=== PATIENT | male | born 1995 | race American Indian/Alaskan Native ===

== ENCOUNTER 2016-12-06 16:46 | Emergency (ER) | payer MEDICAID ==
[2016-12-06 17:52] LABS: Basophils % (Auto) 0.6 % (0.0-1.8); Eosinophils % (Auto) 2.1 % (0.0-4.3); Hematocrit 45.3 % (35.5-45.6); Hemoglobin 14.9 gm/dl (11.8-15.2); Mean Corpuscular HGB Conc 33 % (32-34); Mean Corpuscular Hemoglobin 31 pg (28-32); Mean Corpuscular Volume 95 fl (84-94); Platelet Count 184 K/mm3 (140-440); Red Blood Count 4.78 M/mm3 (3.65-5.03); Red Cell Distribution Width 14.2 % (13.2-15.2)
[2016-12-06 18:11] LABS: Alanine Aminotransferase 11 units/L (7-56); Albumin 4.6 g/dL (3.9-5); Albumin/Globulin Ratio 1.5 %; Alkaline Phosphatase 56 units/L (35-129); Anion Gap 18 mmol/L; BUN/Creatinine Ratio 16.66; Blood Urea Nitrogen 15 mg/dL (9-20); Calcium 9.6 mg/dL (8.4-10.2); Carbon Dioxide 27 mmol/L (22-30); Chloride 102.2 mmol/L (98-107); Glucose 75 mg/dL (75-100); Lipase 14 units/L (13-60); Potassium 4.2 mmol/L (3.6-5.0); Sodium 143 mmol/L (137-145); Total Protein 7.6 g/dL (6.3-8.2)
[2016-12-06 20:55] LABS: Bilirubin,Urine NEG (Negative); Blood,Urine LG (Negative); Ketones,Urine NEG (Negative); Leukocyte Esterase,Urine NEG (Negative); Mucus,Urine 1+ /HPF; Nitrite,Urine NEG (Negative); Protein,Urine <15 mg/dL mg/dL (Negative); Urobilinogen,Urine < 2.0 mg/dL (<2.0)
[2016-12-07] MEDS ORDERED: MORPHINE IV ONE (02:51)
[2016-12-07] MEDS ORDERED: ZOFRAN IV ONE (02:53)
[2016-12-07] MEDS ORDERED: TORADOL IV ONE (02:53)
--- NOTE | 2016-12-07 02:58 | Emergency Department Report ---
HPI - General Chief Complaint: Abdominal Pain Time Seen by Provider: 12/07/16 02:44 - HPI HPI: Room 20 The patient is a 21-year-old male presented with a chief complaint of left flank pain. Patient states his symptoms began last night while walking developed pain in his left flank. Patient states she began to feel weak so he laid down once he got to his destination. That evening after urinating the patient noticed hematuria. Patient states the pain in his flank has been a constant pressure and stabbing pain. This morning the patient had another episode of hematuria and was advised by his mother to come to the emergency department. The patient currently gives his pain a score of 10/10 Location: Left flank Duration: Constant since last night Quality: Sharp, pressure Severity: 10/10 Modifying factors: [see above] Context: [see above] Mode of transportation: [not driving] ED Past Medical Hx - Past Medical History Previous Medical History?: No - Surgical History Past Surgical History?: No - Family History Family history: no significant - Social History Smoking Status: Current Some Day Smoker Substance Use Type: None (denies illicit drug use) - Medications Home Medications: Home Medications Medication Instructions Recorded Confirmed Last Taken Type Ibuprofen [Motrin 800 MG tab] 800 mg PO TID PRN #60 tablet 02/28/13 Unknown Rx Ibuprofen [Motrin] 600 mg PO Q8H PRN #60 tablet 08/16/14 Unknown Rx traMADol [Ultram 50 MG tab] 50 mg PO Q6HR PRN #14 tablet 11/07/14 Unknown Rx Ibuprofen [Motrin 800 MG tab] 800 mg PO Q8HR PRN #20 tablet 12/07/16 Unknown Rx Sulfamethoxazole/Trimethoprim 1 each PO BID #14 tablet 12/07/16 Unknown Rx [Bactrim DS TAB] traMADol [Ultram] 50 mg PO Q6HR PRN #14 tablet 12/07/16 Unknown Rx ED Review of Systems ROS: Stated complaint: LT SIDE PAIN/BLOOD IN URINE/CHEST PAIN Other details as noted in HPI Comment: All other systems reviewed and negative Constitutional: denies: chills, fever Eyes: denies: eye pain, eye discharge, vision change ENT: denies: ear pain, throat pain Respiratory: denies: cough, shortness of breath, wheezing Cardiovascular: denies: chest pain, palpitations Endocrine: no symptoms reported Gastrointestinal: abdominal pain. denies: nausea, vomiting Genitourinary: hematuria Musculoskeletal: back pain. denies: joint swelling, arthralgia Skin: denies: rash, lesions Neurological: denies: headache, weakness, paresthesias Psychiatric: denies: anxiety, depression Hematological/Lymphatic: denies: easy bleeding, easy bruising Physical Exam - Physical Exam Vital Signs: Vital Signs 12/06/16 12/07/16 12/07/16 17:26 00:08 01:22 Temperature 98.3 F Pulse Rate 66 76 77 Respiratory 18 16 16 Rate Blood Pressure 112/84 122/88 Blood Pressure 105/57 [Left] O2 Sat by Pulse 96 100 97 Oximetry Physical Exam: GENERAL: The patient is well-developed well-nourished male lying on stretcher not appearing to be in acute distress. [] HEENT: Normocephalic. Atraumatic. Extraocular motions are intact. Patient has moist mucous membranes. NECK: Supple. Trachea midline CHEST/LUNGS: Clear to auscultation. There is no respiratory distress noted. HEART/CARDIOVASCULAR: Regular. There is no tachycardia. There is no gallop rub or murmur. ABDOMEN: Abdomen is soft, with diffuse discomfort to palpation. There is no rebound or guarding. Patient has normal bowel sounds. There is no abdominal distention. SKIN: There is no rash. There is no edema. There is no diaphoresis. NEURO: The patient is awake, alert, and oriented. The patient is cooperative. The patient has normal speech MUSCULOSKELETAL: There is left CVA tenderness. There is no evidence of acute injury. ED Course Vital Signs 12/06/16 12/07/16 12/07/16 17:26 00:08 01:22 Temperature 98.3 F Pulse Rate 66 76 77 Respiratory 18 16 16 Rate Blood Pressure 112/84 122/88 Blood Pressure 105/57 [Left] O2 Sat by Pulse 96 100 97 Oximetry ED Medical Decision Making - Lab Data Result diagrams: 12/06/16 17:33 12/07/16 01:27 Laboratory Tests 12/06/16 12/06/16 12/06/16 17:33 17:33 20:30 WBC 4.0 L RBC 4.78 Hgb 14.9 Hct 45.3 MCV 95 H MCH 31 MCHC 33 RDW 14.2 Plt Count 184 Lymph % (Auto) 47.6 H [place] % (Auto) 6.7 Eos % (Auto) 2.1 Baso % (Auto) 0.6 Lymph # 1.9 [place] # 0.3 Eos # 0.1 Baso # 0.0 Seg Neutrophils % 43.0 Seg Neutrophils # 1.7 L Sodium 143 Potassium 4.2 Chloride 102.2 Carbon Dioxide 27 Anion Gap 18 BUN 15 Creatinine 0.9 Estimated GFR > 60 BUN/Creatinine Ratio 16.66 Glucose 75 Calcium 9.6 Total Bilirubin 0.60 AST 15 ALT 11 Alkaline Phosphatase 56 Troponin T Total Protein 7.6 Albumin 4.6 Albumin/Globulin Ratio 1.5 Lipase 14 Urine Color Yellow Urine Turbidity Clear Urine pH 6.0 Ur Specific [place] 1.024 Urine Protein <15 mg/dl Urine Glucose (UA) Neg Urine Ketones Neg Urine Blood Lg Urine Nitrite Neg Urine Bilirubin Neg Urine Urobilinogen < 2.0 Ur Leukocyte Esterase Neg Urine WBC (Auto) 2.0 Urine RBC (Auto) 59.0 U Epithel Cells (Auto) 1.0 Urine Mucus 1+ 12/07/16 12/07/16 01:27 04:17 WBC RBC Hgb Hct MCV MCH MCHC RDW Plt Count Lymph % (Auto) [place] % (Auto) Eos % (Auto) Baso % (Auto) Lymph # [place] # Eos # Baso # Seg Neutrophils % Seg Neutrophils # Sodium 140 Potassium 4.4 Chloride 102.6 Carbon Dioxide 23 Anion Gap 19 BUN 14 Creatinine 0.7 L Estimated GFR > 60 BUN/Creatinine Ratio 20.00 Glucose 64 L Calcium 9.2 Total Bilirubin AST ALT Alkaline Phosphatase Troponin T < 0.010 < 0.010 Total Protein Albumin Albumin/Globulin Ratio Lipase Urine Color Urine Turbidity Urine pH Ur Specific [place] Urine Protein Urine Glucose (UA) Urine Ketones Urine Blood Urine Nitrite Urine Bilirubin Urine Urobilinogen Ur Leukocyte Esterase Urine WBC (Auto) Urine RBC (Auto) U Epithel Cells (Auto) Urine Mucus - EKG Data -: EKG Interpreted by [place] EKG shows normal: sinus rhythm Rate: bradycardia (52 bpm) - EKG Data When compared to previous EKG there are: previous EKG unavailable Interpretation: other (no ischemic changes seen) - Radiology Data Radiology results: report reviewed (CT abdomen and pelvis, testicular ultrasound ), image reviewed (CT abdomen and pelvis, testicular ultrasound) CT abdomen and pelvis (read by radiologist)-there is no evidence of intestinal or urinary tract obstruction. No ileus or enteritis. The appendix is normal. Testicular Doppler (read by radiologist)-normal examination - Medical Decision Making Will treat empirically for UTI given no other etiology for hematuria has been discovered. - Differential Diagnosis renal colic, pyelonephritis, renal mass, bladder mass Critical care attestation.: If time is entered above; I have spent that time in minutes in the direct care of this critically ill patient, excluding procedure time. ED Disposition Clinical Impression: Left flank pain, Hematuria Disposition: TO HOME OR SELFCARE Is pt being admited?: No Does the pt Need Aspirin: No Condition: Stable Instructions: Acute Hematuria (ED), Flank Pain (ED) Additional Instructions: Return to the emergency department immediately should you develop worsening symptoms, fever, inability to tolerate food or liquid or any other concerns. Prescriptions: Ibuprofen [Motrin 800 MG tab] 800 mg PO Q8HR PRN #20 tablet PRN Reason: Pain Sulfamethoxazole/Trimethoprim [Bactrim DS TAB] 1 each PO BID #14 tablet traMADol [Ultram] 50 mg PO Q6HR PRN #14 tablet PRN Reason: Pain Referrals: KAYLEN TREJO MD [Staff Physician] - 3-5 Days JASMINE OCHOA MD [Staff Physician] - 3-5 Days (Dr. Ochoa is a urologist. Please follow up with him for further evaluation) Time of Disposition: 05:30
[2016-12-07 03:09] LABS: Anion Gap 19 mmol/L; Blood Urea Nitrogen 14 mg/dL (9-20); Calcium 9.2 mg/dL (8.4-10.2); Carbon Dioxide 23 mmol/L (22-30); Chloride 102.6 mmol/L (98-107); Glucose 64 mg/dL (75-100); Potassium 4.4 mmol/L (3.6-5.0); Sodium 140 mmol/L (137-145)
--- NOTE | 2016-12-07 03:48 | Cat Scan Report ---
FINAL REPORT PROCEDURE: CT ABDOMEN PELVIS WO CON TECHNIQUE: Computerized axial tomography of the abdomen and pelvis was performed without intravenous contrast. This study is performed without intravascular contrast material and its sensitivity for abdominal and pelvic pathology, including neoplasms, inflammation, abscess, free fluid, thrombosis, arterial dissection and infarction, is reduced compared with a contrast enhanced study. HISTORY: left flank pain, hematuria COMPARISON: No prior studies are available for comparison. FINDINGS: Visualized lower thorax: No significant abnormality. Liver: Normal size and attenuation. Spleen: Normal size and attenuation. Gallbladder and biliary system: Normal. Pancreas: Normal. Adrenals: Normal. Kidneys: Normal. GI tract: The stomach is normal. The small bowel has a normal appearance. No obstruction, ileus or enteritis. The colon is normal. The appendix is normal.. Lymph nodes and mesentery: Normal. Vasculature: Normal. Bladder: Normal. Reproductive organs: Normal. Peritoneum: No free fluid. Musculoskeletal structures: No significant abnormality. Other: None. IMPRESSION: There is no evidence of intestinal or urinary tract obstruction. No ileus or enteritis. The appendix is normal..
[2016-12-07 05:10] VITALS: BP 100/63
--- NOTE | 2016-12-07 05:16 | Ultrasound Report ---
FINAL REPORT PROCEDURE: US TESTICULAR DOPPLER COMP TECHNIQUE: Real-time dickinson-scale and color flow Doppler sonography in multiple planes of the scrotum, testicles, and epididymes was performed. Velocity spectral waveform analysis Doppler imaging of the arterial inflow and venous outflow of the testicles was performed with image documentation. CPT 60365 and 03288 HISTORY: left flank pain COMPARISON: No prior studies are available for comparison. FINDINGS: RIGHT TESTICLE: Size: 3.9 x 1.7 x 2.4 cm . Appearance: Normal size and echotexture . Arterial blood flow: Normal spectral waveforms, flow velocities and color flow images.. Venous blood flow: Normal spectral waveforms and color flow images. Right epididymis: Normal size and echotexture . Hydrocele: None . LEFT TESTICLE Size: 3.9 x 1.8 x 2.8 cm . Appearance: Normal size and echotexture . Arterial blood flow: Normal spectral waveforms, flow velocities and color flow images.. Venous blood flow: Normal spectral waveforms and color flow images. Leftepididymis: Normal size and echotexture . Hydrocele: None . IMPRESSION: Normal Examination
--- NOTE | 2016-12-07 09:51 | XRay Report ---
ROUTINE CHEST, TWO VIEWS: HISTORY: chest pain. The trachea, heart, mediastinal contour, lung guerrier and bony thorax are unremarkable. IMPRESSION: Unremarkable chest x-ray. No change since 08/16/14.
== END 2016-12-07 06:07 | disposition home or self-care (01) ==
LOC: ED 16:46
DX: R31.9 Hematuria, unspecified (principal); R10.9 Unspecified abdominal pain; F17.200 Nicotine dependence, unspecified, uncomplicated
CPT/HCPCS: 36415; 71020; 74176; 80048; 80053; 81001; 83690; 84484; 85025; 87086; 93005; 93010; 93975; 96374; 96375; 99285; J1885; J2270; J2405

== ENCOUNTER 2017-10-21 19:06 | Emergency (ER) | payer MEDICAID ==
[2017-10-21] MEDS ORDERED: NACL 0.9% 1000 ML 1,000 ML IV ONE (20:14)
[2017-10-21 21:09] LABS: Basophils # (Auto) 0.1 K/mm3 (0.0-0.1); Basophils % (Auto) 1.1 % (0.0-1.8); Eosinophils # (Auto) 0.2 K/mm3 (0.0-0.4); Eosinophils % (Auto) 3.4 % (0.0-4.3); Hematocrit 43.9 % (35.5-45.6); Hemoglobin 15.3 gm/dl (11.8-15.2); Lymphocytes # (Auto) 2.1 K/mm3 (1.2-5.4); Lymphocytes % (Auto) 40.5 % (13.4-35.0); Mean Corpuscular HGB Conc 35 % (32-34); Mean Corpuscular Hemoglobin 32 pg (28-32); Mean Corpuscular Volume 92 fl (84-94); Monocytes # (Auto) 0.4 K/mm3 (0.0-0.8); Monocytes % (Auto) 7.2 % (0.0-7.3); Platelet Count 274 K/mm3 (140-440); Red Blood Count 4.79 M/mm3 (3.65-5.03); Red Cell Distribution Width 13.8 % (13.2-15.2)
[2017-10-21 21:20] LABS: INR 0.99 (0.87-1.13)
[2017-10-21 21:21] LABS: Partial Thromboplastin Time 31.3 Sec. (24.2-36.6)
[2017-10-21 21:29] LABS: Alanine Aminotransferase 15 units/L (7-56); Albumin 4.3 g/dL (3.9-5); BUN/Creatinine Ratio 13; Blood Urea Nitrogen 12 mg/dL (9-20); Hemolysis Index 15; Lipase 20 units/L (13-60)
[2017-10-21 23:13] LABS: Bilirubin,Urine NEG (Negative); Blood,Urine NEG (Negative); Color,Urine Yellow (Yellow); Mucus,Urine FEW /HPF; Protein,Urine <15 mg/dL mg/dL (Negative); RBC,Urine < 1.0 /HPF (0.0-6.0)
[2017-10-21] MEDS ORDERED: TYLENOL ONE (23:14)
[2017-10-22] MEDS ORDERED: NORCO 5/325 PO ONE ×2 (02:39→06:26)
[2017-10-22] MEDS ORDERED: NACL 0.9% 1000 ML 1,000 ML IV ONE (02:39)
--- NOTE | 2017-10-22 06:50 | XRay Report ---
FINAL REPORT EXAM: XR CHEST 1V AP HISTORY: Coughing up blood. TECHNIQUE: A single frontal portable radiograph of the chest was obtained. No prior studies are available for comparison. FINDINGS: The cardiac silhouette and mediastinum are within normal limits. The lungs are clear bilaterally, without focal infiltrate or effusion. There is no pneumothorax. No significant osseous abnormalities are identified. In this patient with reported hemoptysis, (nonemergent) chest CT should be considered for further evaluation. IMPRESSION: No active disease seen in the chest.
--- NOTE | 2017-10-22 07:00 | Emergency Department Report ---
- General Chief Complaint: GI Bleed Stated Complaint: COUGHING BLOOD/LEFT SIDE PAIN Time Seen by Provider: 10/22/17 06:05 Source: patient Mode of arrival: Ambulatory Limitations: No Limitations - History of Present Illness Initial Comments: Patient is a 22-year-old Male who has past history of smoking presented with 3- 4 days of cough and congestion. Patient states that he is now coughing up small amounts of blood in his sputum. Patient states he's had no nausea vomiting or diarrhea. Patient states he does have some left-sided chest discomfort when he coughs. Patient denies any fever. Severity scale (0 -10): 6 Quality: aching - Related Data Previous Rx's Medication Instructions Recorded Last Taken Type Ibuprofen [Motrin 800 MG tab] 800 mg PO TID PRN #60 tablet 02/28/13 Unknown Rx Ibuprofen [Motrin] 600 mg PO Q8H PRN #60 tablet 08/16/14 Unknown Rx traMADol [Ultram 50 MG tab] 50 mg PO Q6HR PRN #14 tablet 11/07/14 Unknown Rx Ibuprofen [Motrin 800 MG tab] 800 mg PO Q8HR PRN #20 tablet 12/07/16 Unknown Rx Sulfamethoxazole/Trimethoprim 1 each PO BID #14 tablet 12/07/16 Unknown Rx [Bactrim DS TAB] traMADol [Ultram] 50 mg PO Q6HR PRN #14 tablet 12/07/16 Unknown Rx Azithromycin [Zithromax Z-ZOË] 250 mg PO DAILY #6 tablet 10/22/17 Unknown Rx HYDROcodone/APAP 5-325 [[place] 1 each PO Q4HR PRN #12 tablet 10/22/17 Unknown Rx 5/325] predniSONE [Deltasone] 20 mg PO QDAY #5 tab 10/22/17 Unknown Rx Allergies Allergy/AdvReac Type Severity Reaction Status Date / Time No Known Allergies Allergy Verified 12/06/16 17:26 ED Review of Systems ROS: Stated complaint: COUGHING BLOOD/LEFT SIDE PAIN Other details as noted in HPI Comment: All other systems reviewed and negative ED Past Medical Hx - Past Medical History Previous Medical History?: Yes Hx Asthma: Yes - Surgical History Past Surgical History?: No - Social History Smoking Status: Current Every Day Smoker Substance Use Type: None - Medications Home Medications: Home Medications Medication Instructions Recorded Confirmed Last Taken Type Ibuprofen [Motrin 800 MG tab] 800 mg PO TID PRN #60 tablet 02/28/13 Unknown Rx Ibuprofen [Motrin] 600 mg PO Q8H PRN #60 tablet 08/16/14 Unknown Rx traMADol [Ultram 50 MG tab] 50 mg PO Q6HR PRN #14 tablet 11/07/14 Unknown Rx Ibuprofen [Motrin 800 MG tab] 800 mg PO Q8HR PRN #20 tablet 12/07/16 Unknown Rx Sulfamethoxazole/Trimethoprim 1 each PO BID #14 tablet 12/07/16 Unknown Rx [Bactrim DS TAB] traMADol [Ultram] 50 mg PO Q6HR PRN #14 tablet 12/07/16 Unknown Rx Azithromycin [Zithromax Z-ZOË] 250 mg PO DAILY #6 tablet 10/22/17 Unknown Rx HYDROcodone/APAP 5-325 [[place] 1 each PO Q4HR PRN #12 tablet 10/22/17 Unknown Rx 5/325] predniSONE [Deltasone] 20 mg PO QDAY #5 tab 10/22/17 Unknown Rx ED Physical Exam - General Limitations: No Limitations General appearance: alert, in no apparent distress - Head Head exam: Present: atraumatic, normocephalic - Eye Eye exam: Present: normal appearance - ENT ENT exam: Present: mucous membranes moist - Neck Neck exam: Present: normal inspection - Respiratory Respiratory exam: Present: normal lung sounds bilaterally. Absent: respiratory distress, wheezes, rales, rhonchi - Cardiovascular Cardiovascular Exam: Present: regular rate, normal rhythm. Absent: systolic murmur, diastolic murmur, rubs, gallop - GI/Abdominal GI/Abdominal exam: Present: soft, normal bowel sounds. Absent: distended, tenderness, guarding - Rectal Rectal exam: Present: deferred - Extremities Exam Extremities exam: Present: normal inspection - Back Exam Back exam: Present: normal inspection - Neurological Exam Neurological exam: Present: alert, oriented X3 - Psychiatric Psychiatric exam: Present: normal affect, normal mood - Skin Skin exam: Present: warm, dry, intact, normal color. Absent: rash ED Course Vital Signs 10/21/17 10/21/17 10/21/17 19:41 20:10 23:34 Temperature 98.6 F 98.6 F Pulse Rate 83 Respiratory 16 18 Rate Blood Pressure 104/72 104/72 Blood Pressure [Left] O2 Sat by Pulse 96 99 Oximetry 10/21/17 10/22/17 10/22/17 23:44 00:00 01:00 Temperature 97.7 F Pulse Rate 52 L 63 56 L Respiratory 14 18 20 Rate Blood Pressure 116/77 104/73 Blood Pressure 116/77 [Left] O2 Sat by Pulse 99 99 99 Oximetry 10/22/17 10/22/17 10/22/17 02:00 03:00 04:00 Temperature Pulse Rate 61 66 63 Respiratory 17 18 28 H Rate Blood Pressure 97/65 99/57 102/63 Blood Pressure [Left] O2 Sat by Pulse 98 98 98 Oximetry 10/22/17 05:00 Temperature Pulse Rate 59 L Respiratory 19 Rate Blood Pressure 108/59 Blood Pressure [Left] O2 Sat by Pulse 99 Oximetry ED Medical Decision Making - Lab Data Result diagrams: 10/21/17 20:48 10/21/17 20:48 - EKG Data -: EKG Interpreted by Id - EKG Data Interpretation: other (EKG shows sinus bradycardia rate of 51 normal axis normal intervals there's ST elevation diffusely consistent with early repolarization is no ST depressions time of interpretation is ) - Radiology Data Radiology results: report reviewed Chest x-ray is within normal limits. There are no infiltrates present. - Medical Decision Making Patient is a 22-year-old black male who has past medical history smoking is coughing small amounts of blood. As no infiltrate seen on x-ray patient be diagnosed with a smoker's bronchitis and be discharged home. Critical care attestation.: If time is entered above; I have spent that time in minutes in the direct care of this critically ill patient, excluding procedure time. ED Disposition Clinical Impression: Bronchitis Disposition: DC-01 TO HOME OR SELFCARE Is pt being admited?: No Does the pt Need Aspirin: No Condition: Stable Instructions: Acute Bronchitis (ED) Referrals: CHINTAN CACERES MD [Primary Care Provider] - 3-5 Days Forms: Accompanied Note
[2017-10-22 07:40] VITALS: BP 98/61
== END 2017-10-22 07:49 | disposition home or self-care (01) ==
LOC: ED 19:06
DX: J45.909 Unspecified asthma, uncomplicated (principal); F17.200 Nicotine dependence, unspecified, uncomplicated
CPT/HCPCS: 36415; 71045; 80053; 81001; 83690; 85025; 85610; 85730; 86850; 86900; 86901; 93005; 93010; 96360; 96361; 99284; J7030

== ENCOUNTER 2017-10-24 20:53 | Emergency (ER) | payer MEDICAID ==
[2017-10-24 21:46] LABS: Basophils % (Auto) 0.1 % (0.0-1.8); Hematocrit 44.6 % (35.5-45.6); Hemoglobin 14.9 gm/dl (11.8-15.2); Lymphocytes # (Auto) 0.6 K/mm3 (1.2-5.4); Lymphocytes % (Auto) 8.4 % (13.4-35.0); Mean Corpuscular HGB Conc 33 % (32-34); Mean Corpuscular Hemoglobin 31 pg (28-32); Mean Corpuscular Volume 94 fl (84-94); Monocytes # (Auto) 0.1 K/mm3 (0.0-0.8); Monocytes % (Auto) 1.6 % (0.0-7.3); Platelet Count 285 K/mm3 (140-440); Red Blood Count 4.77 M/mm3 (3.65-5.03); Red Cell Distribution Width 14.2 % (13.2-15.2)
--- NOTE | 2017-10-24 22:12 | XRay Report ---
FINAL REPORT PROCEDURE: XR CHEST ROUTINE 2V TECHNIQUE: PA and lateral chest radiographs were obtained. CPT 69835 HISTORY: shortness of breath COMPARISON: 10/22/2017 FINDINGS: Heart: Normal. Mediastinum/Vessels: Normal. Lungs/Pleural space: Normal. Bony thorax: No acute osseous abnormality. Other: IMPRESSION: Normal examination.
[2017-10-24 22:41] LABS: BUN/Creatinine Ratio TNR; Blood Urea Nitrogen TNR mg/dL (9-20)
[2017-10-24 22:42] LABS: Calcium TNR mg/dL (8.4-10.2); Hemolysis Index TNR
[2017-10-24 23:33] LABS: BUN/Creatinine Ratio 19; Blood Urea Nitrogen 15 mg/dL (9-20); Calcium 8.9 mg/dL (8.4-10.2); Hemolysis Index 9
--- NOTE | 2017-10-25 02:15 | Emergency Department Report ---
ED General Adult HPI - General Chief complaint: Upper Respiratory Infection Stated complaint: ELIZA,COUGH Time Seen by Provider: 10/25/17 02:01 Source: patient Mode of arrival: Ambulatory Limitations: No Limitations - History of Present Illness Initial comments: Patient is 22 years old male with no significant past medical history. This is his second visit to the ER for the same complaint. Patient was seen here few days ago diagnoses acute bronchitis. Patient is a heavy smoker. He stated that his symptoms are not improving. Patient denied any fever, nausea or vomiting. No shortness of breath. He stated that he has been coughing greenish sputum also. Severity scale (0 -10): 10 - Related Data Previous Rx's Medication Instructions Recorded Last Taken Type Ibuprofen [Motrin 800 MG tab] 800 mg PO TID PRN #60 tablet 02/28/13 Unknown Rx Ibuprofen [Motrin] 600 mg PO Q8H PRN #60 tablet 08/16/14 Unknown Rx traMADol [Ultram 50 MG tab] 50 mg PO Q6HR PRN #14 tablet 11/07/14 Unknown Rx Ibuprofen [Motrin 800 MG tab] 800 mg PO Q8HR PRN #20 tablet 12/07/16 Unknown Rx Sulfamethoxazole/Trimethoprim 1 each PO BID #14 tablet 12/07/16 Unknown Rx [Bactrim DS TAB] traMADol [Ultram] 50 mg PO Q6HR PRN #14 tablet 12/07/16 Unknown Rx Azithromycin [Zithromax Z-ZOË] 250 mg PO DAILY #6 tablet 10/22/17 Unknown Rx HYDROcodone/APAP 5-325 [[place] 1 each PO Q4HR PRN #12 tablet 10/22/17 Unknown Rx 5/325] predniSONE [Deltasone] 20 mg PO QDAY #5 tab 10/22/17 Unknown Rx Amoxicillin [Amoxicillin TAB] 875 mg PO BID #14 tablet 10/25/17 Unknown Rx Allergies Allergy/AdvReac Type Severity Reaction Status Date / Time No Known Allergies Allergy Verified 12/06/16 17:26 ED Review of Systems ROS: Stated complaint: ELIZA,COUGH Other details as noted in HPI Comment: All other systems reviewed and negative Constitutional: denies: chills, fever Respiratory: cough. denies: orthopnea, shortness of breath, SOB with exertion, SOB at rest, wheezing Gastrointestinal: denies: abdominal pain, nausea, vomiting ED Past Medical Hx - Past Medical History Hx Kidney Stones: Yes Hx Asthma: Yes - Surgical History Past Surgical History?: No - Social History Smoking Status: Heavy Tobacco Smoker - Medications Home Medications: Home Medications Medication Instructions Recorded Confirmed Last Taken Type Ibuprofen [Motrin 800 MG tab] 800 mg PO TID PRN #60 tablet 02/28/13 Unknown Rx Ibuprofen [Motrin] 600 mg PO Q8H PRN #60 tablet 08/16/14 Unknown Rx traMADol [Ultram 50 MG tab] 50 mg PO Q6HR PRN #14 tablet 11/07/14 Unknown Rx Ibuprofen [Motrin 800 MG tab] 800 mg PO Q8HR PRN #20 tablet 12/07/16 Unknown Rx Sulfamethoxazole/Trimethoprim 1 each PO BID #14 tablet 12/07/16 Unknown Rx [Bactrim DS TAB] traMADol [Ultram] 50 mg PO Q6HR PRN #14 tablet 12/07/16 Unknown Rx Azithromycin [Zithromax Z-ZOË] 250 mg PO DAILY #6 tablet 10/22/17 Unknown Rx HYDROcodone/APAP 5-325 [[place] 1 each PO Q4HR PRN #12 tablet 10/22/17 Unknown Rx 5/325] predniSONE [Deltasone] 20 mg PO QDAY #5 tab 10/22/17 Unknown Rx Amoxicillin [Amoxicillin TAB] 875 mg PO BID #14 tablet 10/25/17 Unknown Rx ED Physical Exam - General Limitations: No Limitations General appearance: alert, in no apparent distress - Head Head exam: Present: atraumatic, normocephalic - Eye Eye exam: Present: normal appearance, PERRL - ENT ENT exam: Present: normal exam, normal orophraynx, mucous membranes moist - Neck Neck exam: Present: normal inspection, full ROM. Absent: tenderness, meningismus, lymphadenopathy, thyromegaly - Respiratory Respiratory exam: Present: normal lung sounds bilaterally. Absent: respiratory distress, wheezes, rales, rhonchi, stridor, chest wall tenderness, accessory muscle use, decreased breath sounds, prolonged expiratory - Cardiovascular Cardiovascular Exam: Present: regular rate, normal rhythm, normal heart sounds - GI/Abdominal GI/Abdominal exam: Present: soft, normal bowel sounds. Absent: distended, tenderness, guarding, rebound, rigid, organomegaly, mass, bruit, pulsatile mass , hernia - Extremities Exam Extremities exam: Present: normal inspection, full ROM, normal capillary refill - Back Exam Back exam: Present: normal inspection, full ROM. Absent: tenderness, CVA tenderness (R), CVA tenderness (L), muscle spasm, paraspinal tenderness, vertebral tenderness - Neurological Exam Neurological exam: Present: alert, oriented X3, CN II-XII intact, normal gait - Skin Skin exam: Present: warm, intact, normal color. Absent: cyanosis, diaphoretic, erythema, urticaria ED Course Vital Signs 10/24/17 21:00 Temperature 98.8 F Pulse Rate 58 L Respiratory 20 Rate Blood Pressure 106/63 Blood Pressure 106/63 [Right] O2 Sat by Pulse 95 Oximetry ED Medical Decision Making - Lab Data Result diagrams: 10/24/17 21:20 10/24/17 23:00 - EKG Data -: EKG Interpreted by [place] EKG shows normal: sinus rhythm Rate: bradycardia - EKG Data Interpretation: no acute changes - Radiology Data Radiology results: report reviewed Referring Physician: JAYDA MAHER Patient Name: DANIELLE CORREIA Date of : 1995 Sex: Male Report Date: 2017-10-24 Report Status: Finalized Findings [facility] [address] [place] [address] XRay Report Signed Patient: DANIELLE CORREIA MR#: [id number] : 1995 Acct:[id number] Age/Sex: 22 / M ADM Date: 10/24/17 Loc: ED Attending Dr: Ordering Physician: JAYDA MAHER MD Date of Service: 10/24/17 Procedure(s): XR chest routine 2V Accession Number(s): [id number] cc: ED MD NIKA Fluoro Time In Minutes: FINAL REPORT PROCEDURE: XR CHEST ROUTINE 2V TECHNIQUE: PA and lateral chest radiographs were obtained. CPT 08425 HISTORY: shortness of breath COMPARISON: 10/22/2017 FINDINGS: Heart: Normal. Mediastinum/Vessels: Normal. Lungs/Pleural space: Normal. Bony thorax: No acute osseous abnormality. Other: IMPRESSION: Normal examination. Transcribed By: CO Dictated By: ZIA DANIELS MD Electronically Authenticated By: ZIA DANIELS MD Signed Date/Time: 10/24/172207 DD/ 07 TD/TT: 10/24/172207 Critical care attestation.: If time is entered above; I have spent that time in minutes in the direct care of this critically ill patient, excluding procedure time. ED Disposition Clinical Impression: Acute bronchitis Disposition: - TO HOME OR SELFCARE Is pt being admited?: No Condition: Stable Instructions: Acute Bronchitis (ED) Prescriptions: Amoxicillin [Amoxicillin TAB] 875 mg PO BID #14 tablet Referrals: PRIMARY CARE, [Primary Care Provider] - 3-5 Days
[2017-10-25 02:37] VITALS: BP 113/64
== END 2017-10-25 02:36 | disposition home or self-care (01) ==
LOC: ED 20:53
DX: J20.9 Acute bronchitis, unspecified (principal)
CPT/HCPCS: 36415; 71046; 80048; 85025; 87040; 93005; 93010; 99284

== ENCOUNTER 2018-06-29 21:55 | Emergency (ER) | payer MEDICAID ==
[2018-06-29 22:10] VITALS: BP 102/62
--- NOTE | 2018-06-29 23:18 | Emergency Department Report ---
ED Abdominal Pain HPI - General Chief Complaint: Abdominal Pain Stated Complaint: RT FLANK PAIN Source: patient Mode of arrival: Ambulatory Limitations: No Limitations - History of Present Illness Initial Comments: This is a 23-year-old -[place] male presents with right flank pain for 3-4 days. Patient also complains a few episodes of spitting up blood and shortness of breath. Patient states he is currently taken ibuprofen for ankle pain but has not taken any other medications. He is to use an inhaler 2-3 times per day for cough and shortness of breath. He also admits to frequency and urgency. He denies dysuria, palpitations, wheezing, or chest pain. MD Complaint: abdominal pain Onset/Timin -: days(s) Location: R flank Radiation: none Migration to: no migration Severity: moderate Severity scale (0 -10): 7 Quality: aching Consistency: intermittent Improves With: nothing Worsens With: nothing Associated Symptoms: hematemesis. denies: nausea, vomiting, diarrhea, fever, chills, constipation, dysuria, hematochezia, melena, hematuria, anorexia, syncope - Related Data Previous Rx's Medication Instructions Recorded Last Taken Type Ibuprofen [Motrin 800 MG tab] 800 mg PO TID PRN #60 tablet 02/28/13 Unknown Rx Ibuprofen [Motrin] 600 mg PO Q8H PRN #60 tablet 08/16/14 Unknown Rx traMADol [Ultram 50 MG tab] 50 mg PO Q6HR PRN #14 tablet 11/07/14 Unknown Rx Ibuprofen [Motrin 800 MG tab] 800 mg PO Q8HR PRN #20 tablet 12/07/16 Unknown Rx Sulfamethoxazole/Trimethoprim 1 each PO BID #14 tablet 12/07/16 Unknown Rx [Bactrim DS TAB] traMADol [Ultram] 50 mg PO Q6HR PRN #14 tablet 12/07/16 Unknown Rx Azithromycin [Zithromax Z-ZOË] 250 mg PO DAILY #6 tablet 10/22/17 Unknown Rx HYDROcodone/APAP 5-325 [[place] 1 each PO Q4HR PRN #12 tablet 10/22/17 Unknown Rx 5/325] predniSONE [Deltasone] 20 mg PO QDAY #5 tab 10/22/17 Unknown Rx Amoxicillin [Amoxicillin TAB] 875 mg PO BID #14 tablet 10/25/17 Unknown Rx ALBUTEROL Inhaler(NF) [VENTOLIN 1 puff IH Q4-6H PRN #1 inha 06/30/18 Unknown Rx Inhaler(NF)] Benzonatate [Tessalon Perle] 100 mg PO TID PRN #30 capsule 06/30/18 Unknown Rx Allergies Allergy/AdvReac Type Severity Reaction Status Date / Time No Known Allergies Allergy Verified 12/06/16 17:26 ED Review of Systems ROS: Stated complaint: RT FLANK PAIN Other details as noted in HPI ENT: denies: ear pain, throat pain Respiratory: cough, shortness of breath. denies: wheezing Cardiovascular: denies: chest pain, palpitations Gastrointestinal: denies: abdominal pain, nausea, diarrhea Musculoskeletal: back pain (right flank pain). denies: joint swelling, arthralgia Skin: denies: rash, lesions Neurological: denies: headache, weakness, paresthesias Psychiatric: denies: anxiety, depression ED Past Medical Hx - Past Medical History Hx Kidney Stones: Yes Hx Asthma: Yes - Social History Smoking Status: Current Every Day Smoker - Medications Home Medications: Home Medications Medication Instructions Recorded Confirmed Last Taken Type Ibuprofen [Motrin 800 MG tab] 800 mg PO TID PRN #60 tablet 02/28/13 Unknown Rx Ibuprofen [Motrin] 600 mg PO Q8H PRN #60 tablet 08/16/14 Unknown Rx traMADol [Ultram 50 MG tab] 50 mg PO Q6HR PRN #14 tablet 11/07/14 Unknown Rx Ibuprofen [Motrin 800 MG tab] 800 mg PO Q8HR PRN #20 tablet 12/07/16 Unknown Rx Sulfamethoxazole/Trimethoprim 1 each PO BID #14 tablet 12/07/16 Unknown Rx [Bactrim DS TAB] traMADol [Ultram] 50 mg PO Q6HR PRN #14 tablet 12/07/16 Unknown Rx Azithromycin [Zithromax Z-ZOË] 250 mg PO DAILY #6 tablet 10/22/17 Unknown Rx HYDROcodone/APAP 5-325 [[place] 1 each PO Q4HR PRN #12 tablet 10/22/17 Unknown Rx 5/325] predniSONE [Deltasone] 20 mg PO QDAY #5 tab 10/22/17 Unknown Rx Amoxicillin [Amoxicillin TAB] 875 mg PO BID #14 tablet 10/25/17 Unknown Rx ALBUTEROL Inhaler(NF) [VENTOLIN 1 puff IH Q4-6H PRN #1 inha 06/30/18 Unknown Rx Inhaler(NF)] Benzonatate [Tessalon Perle] 100 mg PO TID PRN #30 capsule 06/30/18 Unknown Rx ED Physical Exam - General Limitations: No Limitations General appearance: alert, in no apparent distress - Respiratory Respiratory exam: Present: normal lung sounds bilaterally. Absent: respiratory distress - Cardiovascular Cardiovascular Exam: Present: regular rate, normal rhythm. Absent: systolic murmur, diastolic murmur, rubs, gallop - GI/Abdominal GI/Abdominal exam: Present: soft, normal bowel sounds. Absent: distended, tenderness, guarding, rebound, organomegaly, mass - Back Exam Back exam: Present: CVA tenderness (R), CVA tenderness (L) - Neurological Exam Neurological exam: Present: alert, oriented X3 - Psychiatric Psychiatric exam: Present: normal affect, normal mood - Skin Skin exam: Present: warm, dry, intact, normal color. Absent: rash ED Course Vital Signs 06/29/18 22:06 Temperature 98.2 F Pulse Rate 71 Respiratory 18 Rate Blood Pressure 102/62 O2 Sat by Pulse 98 Oximetry ED Medical Decision Making - Lab Data Result diagrams: 06/29/18 23:20 06/29/18 23:20 Lab Results 06/29/18 06/29/18 06/29/18 Range/Units 23:20 23:20 Unknown WBC 5.4 (4.5-11.0) K/mm3 RBC 4.34 (3.65-5.03) M/mm3 Hgb 14.1 (11.8-15.2) gm/dl Hct 40.7 (35.5-45.6) % MCV 94 (84-94) fl MCH 33 H (28-32) pg MCHC 35 H (32-34) % RDW 13.8 (13.2-15.2) % Plt Count 173 (140-440) K/mm3 Sodium 142 (137-145) mmol/L Potassium 3.7 (3.6-5.0) mmol/L Chloride 103.6 (98-107) mmol/L Carbon Dioxide 27 (22-30) mmol/L Anion Gap 15 mmol/L BUN 7 L (9-20) mg/dL Creatinine 0.8 (0.8-1.5) mg/dL Estimated GFR > 60 ml/min BUN/Creatinine Ratio 9 % Glucose 89 (75-100) mg/dL Calcium 8.9 (8.4-10.2) mg/dL Total Bilirubin 0.20 (0.1-1.2) mg/dL AST 14 (5-40) units/L ALT 12 (7-56) units/L Alkaline Phosphatase 54 (35-129) units/L Total Protein 6.6 (6.3-8.2) g/dL Albumin 4.4 (3.9-5) g/dL Albumin/Globulin Ratio 2.0 % Lipase 18 (13-60) units/L Urine Color Yellow (Yellow) Urine Turbidity Clear (Clear) Urine pH 7.0 (5.0-7.0) Ur Specific [place] 1.010 (1.003-1.030) Urine Protein <15 mg/dl (Negative) mg/dL Urine Glucose (UA) Neg (Negative) mg/dL Urine Ketones Neg (Negative) mg/dL Urine Blood Neg (Negative) Urine Nitrite Neg (Negative) Urine Bilirubin Neg (Negative) Urine Urobilinogen < 2.0 (<2.0) mg/dL Ur Leukocyte Esterase Neg (Negative) Urine WBC (Auto) 2.0 (0.0-6.0) /HPF Urine RBC (Auto) 1.0 (0.0-6.0) /HPF Urine Mucus 1+ /HPF Urine Yeast (Budding) 2+ /HPF - Radiology Data Radiology results: report reviewed EXAM: XR CHEST ROUTINE 2V HISTORY: SOB, chest tightness. TECHNIQUE: PA and lateral views of the chest were obtained. PRIORS: Prior chest radiographs dated 10/24/2017. FINDINGS: There are no focal consolidations to suggest pneumonia. No large pleural effusion. No pneumothorax. Cardiac silhouette and mediastinal structures are unremarkable. No acute osseous abnormality identified. IMPRESSION: No radiographic evidence of acute cardiopulmonary disease. - Medical Decision Making Patient was examined by me. Vitals are normal and patient is in no acute distress. On focal exam negative wheezing or rhonchi. Obtained a labs and chest x-ray. Labs are unremarkable. X-ray dictated per radiologist report reviewed by myself. No radiographic evidence of acute cardiopulmonary disease. Patient informed of results. Findings are susceptible of asthma exacerbation. Start albuterol and benzonatate. Plan discussed with patient to discharge home and treat outpatient. He agrees with ER plan. Patient discharged home in stable condition. Follow up with PCP in 2-3 days. Critical care attestation.: If time is entered above; I have spent that time in minutes in the direct care of this critically ill patient, excluding procedure time. ED Disposition Clinical Impression: Shortness of breath on exertion, Acute right flank pain, Cough in adult Asthma Qualifiers: Asthma severity: mild Asthma persistence: intermittent Asthma complication type: with acute exacerbation Qualified Code(s): J45.21 - Mild intermittent asthma with (acute) exacerbation Disposition: TO HOME OR SELFCARE Is pt being admited?: No Does the pt Need Aspirin: No Condition: Stable Instructions: Flank Pain (ED), Asthma (ED) Prescriptions: ALBUTEROL Inhaler(NF) [VENTOLIN Inhaler(NF)] 1 puff IH Q4-6H PRN #1 inha PRN Reason: Shortness Of Breath Benzonatate [Tessalon Perle] 100 mg PO TID PRN #30 capsule PRN Reason: Cough Referrals: SHILA WATERS MD [Primary Care Provider] - 3-5 Days Forms: Work/School Release Form(ED) Time of Disposition: 00:35
[2018-06-29 23:29] LABS: Hematocrit 40.7 % (35.5-45.6); Hemoglobin 14.1 gm/dl (11.8-15.2); Mean Corpuscular HGB Conc 35 % (32-34); Mean Corpuscular Volume 94 fl (84-94); Platelet Count 173 K/mm3 (140-440); Red Blood Count 4.34 M/mm3 (3.65-5.03); Red Cell Distribution Width 13.8 % (13.2-15.2)
[2018-06-29 23:47] LABS: Alanine Aminotransferase 12 units/L (7-56); Albumin 4.4 g/dL (3.9-5); BUN/Creatinine Ratio 9; Blood Urea Nitrogen 7 mg/dL (9-20); Calcium 8.9 mg/dL (8.4-10.2); Hemolysis Index 11
--- NOTE | 2018-06-29 23:53 | XRay Report ---
FINAL REPORT EXAM: XR CHEST ROUTINE 2V HISTORY: SOB, chest tightness. TECHNIQUE: PA and lateral views of the chest were obtained. PRIORS: Prior chest radiographs dated 10/24/2017. FINDINGS: There are no focal consolidations to suggest pneumonia. No large pleural effusion. No pneumothorax. C ardiac silhouette and mediastinal structures are unremarkable. No acute osseous abnormality identifie d. IMPRESSION: No radiographic evidence of acute cardiopulmonary disease.
[2018-06-30 00:23] LABS: Bilirubin,Urine NEG (Negative); Blood,Urine NEG (Negative); Color,Urine Yellow (Yellow); Mucus,Urine 1+ /HPF; Protein,Urine <15 mg/dL mg/dL (Negative); Urobilinogen,Urine < 2.0 mg/dL (<2.0)
== END 2018-06-30 01:13 | disposition home or self-care (01) ==
LOC: ED 21:55
DX: J45.21 Mild intermittent asthma with (acute) exacerbation (principal); R10.9 Unspecified abdominal pain; F17.200 Nicotine dependence, unspecified, uncomplicated
CPT/HCPCS: 36415; 71046; 80053; 81001; 83690; 85027

== ENCOUNTER 2018-12-11 13:59 | Emergency (ER) | payer MEDICAID ==
[2018-12-11 15:02] VITALS: BP 107/67
--- NOTE | 2018-12-11 15:03 | Emergency Department Report ---
Chief Complaint: Urogenital-Male Stated Complaint: CHECK UP Time Seen by Provider: 12/11/18 14:55 - HPI History of Present Illness: This is a 23 y.o. M. that presents to the ER for a STD screening. Patient states his girlfriend think she have a STD and told him to get checked. Patient stated he is asymptotic. Patient denies testicular swelling or pain, penile discharge, dysuria, urinary frequency, urgency, and abdominal pain. - ROS Review of Systems: Patient AAAx3, no complaints - Exam Vital Signs: Vital Signs 12/11/18 14:55 Temperature 98.5 F Pulse Rate 95 H Respiratory 18 Rate Blood Pressure 107/67 O2 Sat by Pulse 97 Oximetry Physical Exam: GENERAL: The patient is well looking, in no acute distress. CHEST: Air entry is adequate bilaterally with no rhonchi, and crackles. HEART: Sounds 1 and 2 are heard and are normal. Regular rate and rhythm, no tachycardic, murmurs, gallops, or rubs. ABDOMEN: Soft and nontender. Bowel sounds are present and normal. There is no hepatosplenomegaly. SKIN: Without rash. EXTREMITIES: Without edema, cyanosis, or clubbing. MSE screening note: Focused history and physical exam performed. Due to findings the following was ordered: ED Medical Decision Making - Medical Decision Making This patient was seen by this provider in triage. Patient is requesting STD screening. He denies symptoms. He is well in appearance and vitals normal. This is a nonmedical emergency complaint. Patient was instructed to Follow-up with a primary care doctor or health department for full STD screenings. Referrals given for followup. Patient agrees to discharge treatment plan of care. No further questions noted by the patient. ED Disposition for MSE Clinical Impression: Feared complaint without diagnosis Disposition: DC-01 TO HOME OR SELFCARE Is pt being admited?: No Does the pt Need Aspirin: No Condition: Stable Instructions: Sexually Transmitted Diseases (ED), Safe Sex (ED) Additional Instructions: Follow up with a primary care doctor or the health department for full screening. I have provided a list of referrals to primary care doctors and the nearest health department below. Referrals: [facility]Outside] - 3-5 Days [facility] [Outside] - 3-5 Days [facility] [Outside] - 3-[address] [facility] [Outside] - 3-5 Days [facility] [Provider Group] - 3-5 Days [facility] [Provider Group] - 3-5 Days Time of Disposition: 15:17
== END 2018-12-11 15:31 | disposition home or self-care (01) ==
LOC: ED 13:59
DX: Z71.1 Person with feared health complaint in whom no diagnosis is made (principal)
CPT/HCPCS: 99281

== ENCOUNTER 2018-12-12 20:11 | Emergency (ER) | payer MEDICAID ==
[2018-12-12] MEDS ORDERED: ASPIRIN PO ONE (20:41)
[2018-12-12 21:15] LABS: Eosinophils # (Auto) 0.4 K/mm3 (0.0-0.4); Eosinophils % (Auto) 9.4 % (0.0-4.3); Hematocrit 45.5 % (35.5-45.6); Hemoglobin 15.4 gm/dl (11.8-15.2); Lymphocytes # (Auto) 1.6 K/mm3 (1.2-5.4); Lymphocytes % (Auto) 35.3 % (13.4-35.0); Mean Corpuscular HGB Conc 34 % (32-34); Mean Corpuscular Volume 95 fl (84-94); Monocytes # (Auto) 0.3 K/mm3 (0.0-0.8); Monocytes % (Auto) 5.9 % (0.0-7.3); Platelet Count 167 K/mm3 (140-440); Red Blood Count 4.82 M/mm3 (3.65-5.03); Red Cell Distribution Width 13.5 % (13.2-15.2)
--- NOTE | 2018-12-12 21:21 | XRay Report ---
CHEST 2 VIEWS INDICATION / CLINICAL INFORMATION: Chest pain for one day. COMPARISON: 06/29/2018. FINDINGS: SUPPORT DEVICES: None. HEART / MEDIASTINUM: The heart size and pulmonary vasculature are normal. The aorta is normal in kristin abrahan. LUNGS / PLEURA: No significant pulmonary or pleural abnormality. No pneumothorax. ADDITIONAL FINDINGS: No significant additional findings. IMPRESSION: No acute abnormality or significant change. Signer Name: Neal Jamil MD Signed: 12/12/2018 9:17 PM Workstation Name: [id number]
[2018-12-12 21:31] LABS: BUN/Creatinine Ratio 20; Blood Urea Nitrogen 22 mg/dL (9-20); Calcium 9.2 mg/dL (8.4-10.2); Hemolysis Index 42
[2018-12-12] MEDS ORDERED: PROVENTIL IH ONE (23:30)
[2018-12-12] MEDS ORDERED: ORAPRED PO ONE (23:31)
[2018-12-12] MEDS ORDERED: TYLENOL PO ONE (23:31)
--- NOTE | 2018-12-12 23:54 | Emergency Department Report ---
ED General Adult HPI - General Chief complaint: Chest Pain Stated complaint: ELIZA Time Seen by Provider: 12/12/18 22:50 Source: patient Mode of arrival: Ambulatory Limitations: No Limitations - History of Present Illness Initial comments: Patient is a 23-year-old -[place] male with a history of asthma and a heavy tobacco smoker presents to the ED with complaint of acute onset persistent shortness of breath, dry cough, wheezing, chest pain and generalized weakness for the last 24 hours intermittently. Patient states that his symptoms are wors ened in the last 8 hours. Patient states that he ran out of his albuterol rescue inhaler 4 days ago. Patient denies dizziness, fever, chills, sore throat, nasal and sinus congestion, headache, abdominal pain, change in vision, back pain, palpitations or hematuria and dysuria. MD Complaint: dyspnea, cough, chest pain -: Sudden, hour(s) (24) Location: chest Radiation: non-radiation Severity scale (0 -10): 5 Quality: aching, sharp Consistency: intermittent Improves with: none Associated Symptoms: chest pain, cough, shortness of breath. denies: confusion, diaphoresis, fever/chills, headaches, loss of appetite, malaise, nausea/vomiting, rash, seizure, syncope, weakness - Related Data Previous Rx's Medication Instructions Recorded Last Taken Type Ibuprofen [Motrin 800 MG tab] 800 mg PO TID PRN #60 tablet 02/28/13 Unknown Rx Ibuprofen [Motrin] 600 mg PO Q8H PRN #60 tablet 08/16/14 Unknown Rx traMADol [Ultram 50 MG tab] 50 mg PO Q6HR PRN #14 tablet 11/07/14 Unknown Rx Ibuprofen [Motrin 800 MG tab] 800 mg PO Q8HR PRN #20 tablet 12/07/16 Unknown Rx Sulfamethoxazole/Trimethoprim 1 each PO BID #14 tablet 12/07/16 Unknown Rx [Bactrim DS TAB] traMADol [Ultram] 50 mg PO Q6HR PRN #14 tablet 12/07/16 Unknown Rx Azithromycin [Zithromax Z-ZOË] 250 mg PO DAILY #6 tablet 10/22/17 Unknown Rx HYDROcodone/APAP 5-325 [[place] 1 each PO Q4HR PRN #12 tablet 10/22/17 Unknown Rx 5/325] predniSONE [Deltasone] 20 mg PO QDAY #5 tab 10/22/17 Unknown Rx Amoxicillin [Amoxicillin TAB] 875 mg PO BID #14 tablet 10/25/17 Unknown Rx ALBUTEROL Inhaler(NF) [VENTOLIN 1 puff IH Q4-6H PRN #1 inha 06/30/18 Unknown Rx Inhaler(NF)] Benzonatate [Tessalon Perle] 100 mg PO TID PRN #30 capsule 06/30/18 Unknown Rx ALBUTEROL Inhaler (OR & NICU) 2 puff IH QID PRN #1 inhalation 12/12/18 Unknown Rx [ProAir HFA Inhaler] Benzonatate [Tessalon Perles] 100 mg PO Q8HR PRN #24 capsule 12/12/18 Unknown Rx Ibuprofen [Motrin] 400 mg PO Q8H PRN #20 tablet 12/12/18 Unknown Rx methylPREDNISolone [Medrol 4MG 4 mg PO DAILY #21 tab.ds.pk 12/12/18 Unknown Rx DOSEPAK (21 tabs)] Allergies Allergy/AdvReac Type Severity Reaction Status Date / Time peanut Allergy Rash Verified 12/12/18 20:16 ED Review of Systems ROS: Stated complaint: ELIZA Other details as noted in HPI Constitutional: denies: chills, fever Eyes: denies: eye pain, eye discharge, vision change ENT: denies: ear pain, throat pain Respiratory: cough, shortness of breath, wheezing Cardiovascular: chest pain. denies: palpitations Endocrine: no symptoms reported Gastrointestinal: denies: abdominal pain, nausea, diarrhea Genitourinary: denies: urgency, dysuria Musculoskeletal: denies: back pain, joint swelling, arthralgia Skin: denies: rash, lesions Neurological: denies: headache, weakness, paresthesias Psychiatric: denies: anxiety, depression Hematological/Lymphatic: denies: easy bleeding, easy bruising ED Past Medical Hx - Past Medical History Hx Kidney Stones: Yes Hx Asthma: Yes Additional medical history: hypertrophic cardiomyopathy - Social History Smoking Status: Current Every Day Smoker Substance Use Type: Marijuana - Medications Home Medications: Home Medications Medication Instructions Recorded Confirmed Last Taken Type Ibuprofen [Motrin 800 MG tab] 800 mg PO TID PRN #60 tablet 02/28/13 Unknown Rx Ibuprofen [Motrin] 600 mg PO Q8H PRN #60 tablet 08/16/14 Unknown Rx traMADol [Ultram 50 MG tab] 50 mg PO Q6HR PRN #14 tablet 11/07/14 Unknown Rx Ibuprofen [Motrin 800 MG tab] 800 mg PO Q8HR PRN #20 tablet 12/07/16 Unknown Rx Sulfamethoxazole/Trimethoprim 1 each PO BID #14 tablet 12/07/16 Unknown Rx [Bactrim DS TAB] traMADol [Ultram] 50 mg PO Q6HR PRN #14 tablet 12/07/16 Unknown Rx Azithromycin [Zithromax Z-ZOË] 250 mg PO DAILY #6 tablet 10/22/17 Unknown Rx HYDROcodone/APAP 5-325 [[place] 1 each PO Q4HR PRN #12 tablet 10/22/17 Unknown Rx 5/325] predniSONE [Deltasone] 20 mg PO QDAY #5 tab 10/22/17 Unknown Rx Amoxicillin [Amoxicillin TAB] 875 mg PO BID #14 tablet 10/25/17 Unknown Rx ALBUTEROL Inhaler(NF) [VENTOLIN 1 puff IH Q4-6H PRN #1 inha 06/30/18 Unknown Rx Inhaler(NF)] Benzonatate [Tessalon Perle] 100 mg PO TID PRN #30 capsule 06/30/18 Unknown Rx ALBUTEROL Inhaler (OR & NICU) 2 puff IH QID PRN #1 inhalation 12/12/18 Unknown Rx [ProAir HFA Inhaler] Benzonatate [Tessalon Perles] 100 mg PO Q8HR PRN #24 capsule 12/12/18 Unknown Rx Ibuprofen [Motrin] 400 mg PO Q8H PRN #20 tablet 12/12/18 Unknown Rx methylPREDNISolone [Medrol 4MG 4 mg PO DAILY #21 tab.ds.pk 12/12/18 Unknown Rx DOSEPAK (21 tabs)] ED Physical Exam - General Limitations: No Limitations General appearance: alert, in no apparent distress - Head Head exam: Present: atraumatic, normocephalic, normal inspection - Eye Eye exam: Present: normal appearance, PERRL, EOMI. Absent: scleral icterus, conjunctival injection, nystagmus Pupils: Present: normal accommodation - ENT ENT exam: Present: normal exam, normal orophraynx, mucous membranes moist, TM's normal bilaterally, normal external ear exam - Neck Neck exam: Present: normal inspection, full ROM. Absent: tenderness, lymphadenopathy - Respiratory Respiratory exam: Present: normal lung sounds bilaterally, wheezes (mildly diffuse sparse wheezes throughout), chest wall tenderness. Absent: respiratory distress, rales, rhonchi, accessory muscle use, decreased breath sounds, prolonged expiratory - Cardiovascular Cardiovascular Exam: Present: regular rate, normal rhythm, normal heart sounds. Absent: systolic murmur, diastolic murmur, rubs, gallop - GI/Abdominal GI/Abdominal exam: Present: soft, normal bowel sounds. Absent: tenderness, guarding, hyperactive bowel sounds, hypoactive bowel sounds, organomegaly, pulsatile mass, hernia - Rectal Rectal exam: Present: deferred - Extremities Exam Extremities exam: Present: normal inspection, full ROM, normal capillary refill - Back Exam Back exam: Present: normal inspection, full ROM. Absent: tenderness, CVA tende rness (L), muscle spasm - Neurological Exam Neurological exam: Present: alert, oriented X3, CN II-XII intact, normal gait, reflexes normal - Psychiatric Psychiatric exam: Present: normal affect, normal mood - Skin Skin exam: Present: warm, dry, intact, normal color. Absent: rash ED Course Vital Signs 12/12/18 20:33 Temperature 97.7 F Pulse Rate 91 H Respiratory 18 Rate Blood Pressure 101/71 O2 Sat by Pulse 97 Oximetry - Reevaluation(s) Reevaluation #1: 12/12/18 23:51 Patient is alert and oriented 3 and is not in any distress. EKG shows sinus rhythm with a ventricular rate of [address] elevation which is probably normal repolarization pattern. There are however no pathological Q waves. Chest x-ray shows no acute cardiopulmonary abnormalities. Laboratory results were reviewed and are all unremarkable. Patient was treated for pain in the ED and also given DuoNeb treatment and steroids in the ED. On reevaluation, the patient felt better, was on the phone most of the time during his ED course of treatment, and was not in any distress. Patient was discharged home on medications including albuterol inhaler and advised follow-up with his primary care physician in 2 days for reevaluation or return to the ED immediately if symptoms get worse. ED Medical Decision Making - Lab Data Result diagrams: 12/12/18 21:03 12/12/18 21:03 - EKG Data EKG shows normal: sinus rhythm Rate: normal - EKG Data Interpretation: normal EKG - Radiology Data Radiology results: report reviewed, image reviewed Chest x-ray: No acute cardiopulmonary abnormalities - Medical Decision Making Patient is alert and oriented 3 and is not in any distress. EKG shows sinus rhythm with a ventricular rate of [address] elevation which is probably normal repolarization pattern. There are however no pathological Q waves. Chest x-ray shows no acute cardiopulmonary abnormalities. Laboratory results were reviewed and are all unremarkable. Patient was treated for pain in the ED and also given DuoNeb treatment and steroids in the ED. On reevaluation, the patient felt better, was on the phone most of the time during his ED course of treatment, and was not in any distress. Patient was discharged home on medicat ions including albuterol inhaler and advised follow-up with his primary care physician in 2 days for reevaluation or return to the ED immediately if symptoms get worse. - Differential Diagnosis acute asthmatic bronchitis; shortness of breath, pleuritic chest pain Critical care attestation.: If time is entered above; I have spent that time in minutes in the direct care of this critically ill patient, excluding procedure time. ED Disposition Clinical Impression: Pleuritic chest pain, Shortness of breath Asthmatic bronchitis with acute exacerbation Qualifiers: Asthma severity: mild Asthma persistence: intermittent Qualified Code(s): J45.21 - Mild intermittent asthma with (acute) exacerbation Disposition: DC-01 TO HOME OR SELFCARE Is pt being admited?: No Does the pt Need Aspirin: No Condition: Stable Instructions: Chest Pain (ED), Asthma (ED), Chronic Bronchitis (ED), Dyspnea (ED) Additional Instructions: Take medications with food, drink plenty of fluids and follow up with your primary care physician in 2-3 days for reevaluation. Return to the ED immediately if symptoms get worse. Prescriptions: methylPREDNISolone [Medrol 4MG DOSEPAK (21 tabs)] 4 mg PO DAILY #21 tab.ds.pk Ibuprofen [Motrin] 400 mg PO Q8H PRN #20 tablet PRN Reason: Pain , Severe (7-10) ALBUTEROL Inhaler (OR & NICU) [ProAir HFA Inhaler] 2 puff IH QID PRN #1 inhalation PRN Reason: Shortness Of Breath Benzonatate [Tessalon Perles] 100 mg PO Q8HR PRN #24 capsule PRN Reason: Cough Referrals: CYNTHIA COTTRELL MD [Primary Care Provider] - 3-5 Days Time of Disposition: 23:57 Print Language: LAO
[2018-12-13 00:46] VITALS: BP 127/82
== END 2018-12-13 00:46 | disposition home or self-care (01) ==
LOC: ED 20:11
DX: R07.81 Pleurodynia (principal); J45.901 Unspecified asthma with (acute) exacerbation; F17.200 Nicotine dependence, unspecified, uncomplicated; F12.10 Cannabis abuse, uncomplicated; Z91.010 Allergy to peanuts; Z79.1 Long term (current) use of non-steroidal anti-inflammatories (NSAID); Z79.899 Other long term (current) drug therapy; Z87.442 Personal history of urinary calculi
CPT/HCPCS: 36415; 71046; 80048; 84484; 85025; 93005; 93010; 94640; J7510

== ENCOUNTER 2020-04-05 20:29 | Emergency (ER) | payer MEDICAID ==
[2020-04-05 20:46] VITALS: BP 103/68
--- NOTE | 2020-04-05 21:28 | XRay Report ---
LEFT FOOT 3 VIEW(S) INDICATION / CLINICAL INFORMATION: Left great toe pain after football injury. COMPARISON: None available. FINDINGS: BONES / JOINT(S): No acute fracture or subluxation. No significant arthritis. SOFT TISSUES: Mild soft tissue swelling of the great toe. ADDITIONAL FINDINGS: None. Signer Name: Shy Chase MD Signed: 04/05/2020 9:23 PM Workstation Name: [id number]
[2020-04-05] MEDS ORDERED: traMADol 50 MG TAB PO ONE (22:21)
--- NOTE | 2020-04-05 22:40 | Emergency Department Report ---
ED Lower Extremity HPI - General Chief Complaint: Extremity Injury, Lower Stated Complaint: LEFT BIG TOE BROKEN Time Seen by Provider: 04/05/20 22:19 Source: patient Mode of arrival: Ambulatory Limitations: No Limitations - History of Present Illness Initial Comments: Patient 25-year-old male who presents for left great toe pain after playing football 2 days ago. States 4/10 pain exacerbated by ambulation. There is no abrasion swelling or deformity. Patient is amatory with steady gait with no acute distress at this time. MD Complaint: foot injury - Related Data Previous Rx's Medication Instructions Recorded Last Taken Type Ibuprofen [Motrin 800 MG tab] 800 mg PO TID PRN #60 tablet 02/28/13 Unknown Rx Ibuprofen [Motrin] 600 mg PO Q8H PRN #60 tablet 08/16/14 Unknown Rx traMADoL [Ultram 50 MG tab] 50 mg PO Q6HR PRN #14 tablet 11/07/14 Unknown Rx Ibuprofen [Motrin 800 MG tab] 800 mg PO Q8HR PRN #20 tablet 12/07/16 Unknown Rx Sulfamethoxazole/Trimethoprim 1 each PO BID #14 tablet 12/07/16 Unknown Rx [Bactrim DS TAB] traMADoL [Ultram] 50 mg PO Q6HR PRN #14 tablet 12/07/16 Unknown Rx Azithromycin [Zithromax Z-ZOË] 250 mg PO DAILY #6 tablet 10/22/17 Unknown Rx HYDROcodone/APAP 5-325 [[place] 1 each PO Q4HR PRN #12 tablet 10/22/17 Unknown Rx 5/325] predniSONE [Deltasone] 20 mg PO QDAY #5 tab 10/22/17 Unknown Rx Amoxicillin [Amoxicillin TAB] 875 mg PO BID #14 tablet 10/25/17 Unknown Rx ALBUTEROL Inhaler(NF) [VENTOLIN 1 puff IH Q4-6H PRN #1 inha 06/30/18 Unknown Rx Inhaler(NF)] Benzonatate [Tessalon Perle] 100 mg PO TID PRN #30 capsule 06/30/18 Unknown Rx Albuterol Mdi (or & Nicu Only) 2 puff IH QID PRN #1 inhalation 12/12/18 Unknown Rx [ProAir HFA Inhaler] Benzonatate [Tessalon Perles] 100 mg PO Q8HR PRN #24 capsule 12/12/18 Unknown Rx Ibuprofen [Motrin] 400 mg PO Q8H PRN #20 tablet 12/12/18 Unknown Rx methylPREDNISolone [Medrol 4MG 4 mg PO DAILY #21 tab.ds.pk 12/12/18 Unknown Rx DOSEPAK (21 tabs)] Ibuprofen [Motrin 800 MG tab] 800 mg PO Q8HR PRN #30 tablet 04/05/20 Unknown Rx Allergies Allergy/AdvReac Type Severity Reaction Status Date / Time peanut Allergy Rash Verified 12/12/18 20:16 ED Review of Systems ROS: Stated complaint: LEFT BIG TOE BROKEN Other details as noted in HPI Constitutional: denies: chills, fever Eyes: denies: eye pain, eye discharge, vision change ENT: denies: ear pain, throat pain Respiratory: denies: cough, shortness of breath, wheezing Cardiovascular: denies: chest pain, palpitations Endocrine: no symptoms reported Gastrointestinal: denies: abdominal pain, nausea, diarrhea Genitourinary: denies: urgency, dysuria Musculoskeletal: other (left great toe pain ). denies: back pain, joint swelling, arthralgia Skin: denies: rash, lesions Neurological: denies: headache, weakness, paresthesias Psychiatric: denies: anxiety, depression Hematological/Lymphatic: denies: easy bleeding, easy bruising ED Past Medical Hx - Past Medical History Previous Medical History?: Yes Hx Kidney Stones: Yes Hx Asthma: Yes Additional medical history: hypertrophic cardiomyopathy - Surgical History Past Surgical History?: No - Social History Smoking Status: Current Every Day Smoker Substance Use Type: None - Medications Home Medications: Home Medications Medication Instructions Recorded Confirmed Last Taken Type Ibuprofen [Motrin 800 MG tab] 800 mg PO TID PRN #60 tablet 02/28/13 Unknown Rx Ibuprofen [Motrin] 600 mg PO Q8H PRN #60 tablet 08/16/14 Unknown Rx traMADoL [Ultram 50 MG tab] 50 mg PO Q6HR PRN #14 tablet 11/07/14 Unknown Rx Ibuprofen [Motrin 800 MG tab] 800 mg PO Q8HR PRN #20 tablet 12/07/16 Unknown Rx Sulfamethoxazole/Trimethoprim 1 each PO BID #14 tablet 12/07/16 Unknown Rx [Bactrim DS TAB] traMADoL [Ultram] 50 mg PO Q6HR PRN #14 tablet 12/07/16 Unknown Rx Azithromycin [Zithromax Z-ZOË] 250 mg PO DAILY #6 tablet 10/22/17 Unknown Rx HYDROcodone/APAP 5-325 [[place] 1 each PO Q4HR PRN #12 tablet 10/22/17 Unknown Rx 5/325] predniSONE [Deltasone] 20 mg PO QDAY #5 tab 10/22/17 Unknown Rx Amoxicillin [Amoxicillin TAB] 875 mg PO BID #14 tablet 10/25/17 Unknown Rx ALBUTEROL Inhaler(NF) [VENTOLIN 1 puff IH Q4-6H PRN #1 inha 06/30/18 Unknown Rx Inhaler(NF)] Benzonatate [Tessalon Perle] 100 mg PO TID PRN #30 capsule 06/30/18 Unknown Rx Albuterol Mdi (or & Nicu Only) 2 puff IH QID PRN #1 inhalation 12/12/18 Unknown Rx [ProAir HFA Inhaler] Benzonatate [Tessalon Perles] 100 mg PO Q8HR PRN #24 capsule 12/12/18 Unknown Rx Ibuprofen [Motrin] 400 mg PO Q8H PRN #20 tablet 12/12/18 Unknown Rx methylPREDNISolone [Medrol 4MG 4 mg PO DAILY #21 tab.ds.pk 12/12/18 Unknown Rx DOSEPAK (21 tabs)] Ibuprofen [Motrin 800 MG tab] 800 mg PO Q8HR PRN #30 tablet 04/05/20 Unknown Rx ED Physical Exam - General Limitations: No Limitations General appearance: alert, in no apparent distress - Head Head exam: Present: atraumatic, normocephalic - Eye Eye exam: Present: normal appearance - ENT ENT exam: Present: mucous membranes moist - Neck Neck exam: Present: normal inspection - Respiratory Respiratory exam: Present: normal lung sounds bilaterally. Absent: respiratory distress - Cardiovascular Cardiovascular Exam: Present: regular rate, normal rhythm, normal heart sounds. Absent: systolic murmur, diastolic murmur, rubs, gallop - GI/Abdominal GI/Abdominal exam: Present: soft, normal bowel sounds - Rectal Rectal exam: Present: deferred - Extremities Exam Extremities exam: Present: normal inspection, full ROM, tenderness (left great toe pain to movement ), normal capillary refill. Absent: joint swelling - Expanded Lower Extremity Exam Left Foot/Toe exam: Present: full ROM, tenderness (left great toe ). Absent: swelling, abrasion, laceration, ecchymosis, deformity, crepidus, dislocation, erythema, amputation, puncture wound Neuro vascular tendon exam: Absent: pulse deficit, motor deficit, sensory deficit, tendon deficit Gait: Positive: observed and normal - Back Exam Back exam: Present: normal inspection - Neurological Exam Neurological exam: Present: alert, oriented X3, normal gait - Psychiatric Psychiatric exam: Present: normal affect, normal mood - Skin Skin exam: Present: warm, dry, intact, normal color. Absent: rash ED Course Vital Signs 04/05/20 20:39 Temperature 98.5 F Pulse Rate 80 Respiratory 18 Rate Blood Pressure 103/68 O2 Sat by Pulse 97 Oximetry ED Lower Extremity MDM - Radiology Data Radiology results: report reviewed, image reviewed Findings Reporting MD: Shy Chase Dictation Time: April 05, 2020 20:23 T ranscriptionist: Not available Scheduling Administrator Date: LEFT FOOT 3 VIEW(S) INDICATION / CLINICAL INFORMATION: Left great toe pain after football injury. COMPARISON: None available. FINDINGS: BONES / JOINT(S): No acute fracture or subluxation. No significant arthritis. SOFT TISSUES: Mild soft tissue swelling of the great toe. ADDITIONAL FINDINGS: None. 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 , Patient verbalized agreement and understanding with discharge plan patient DC'd home in stable condition at this time Critical care attestation.: If time is entered above; I have spent that time in minutes in the direct care of this critically ill patient, excluding procedure time. ED Disposition Clinical Impression: Sprain of toe, great, left Qualifiers: Encounter type: initial encounter Qualified Code(s): S93.502A - Unspecified sprain of left great toe, initial encounter Disposition: DC-01 TO HOME OR SELFCARE Is pt being admited?: No Does the pt Need Aspirin: No Condition: Stable Instructions: Foot Sprain (ED) Prescriptions: Ibuprofen [Motrin 800 MG tab] 800 mg PO Q8HR PRN #30 tablet PRN Reason: pain Referrals: KATHLEEN,OLUWASHEYI EDWIN, MD [Referring] - 3-5 Days Forms: Work/School Release Form(ED) Time of Disposition: 22:42
== END 2020-04-05 22:55 | disposition home or self-care (01) ==
LOC: ED 20:29
DX: S93.502A Unspecified sprain of left great toe, initial encounter (principal); N20.0 Calculus of kidney; J45.909 Unspecified asthma, uncomplicated; F17.200 Nicotine dependence, unspecified, uncomplicated; Z98.890 Other specified postprocedural states; X50.1XXA Overexertion from prolonged static or awkward postures, initial encounter; Y93.89 Activity, other specified; Y92.89 Other specified places as the place of occurrence of the external cause; Y99.8 Other external cause status
CPT/HCPCS: 99283

== ENCOUNTER 2020-07-16 19:32 | Emergency (ER) | payer MEDICAID ==
[2020-07-16] MEDS ORDERED: HYDROcodone/ACETAMINOPHEN 10-325MG TAB PO ONE (19:44)
[2020-07-16] MEDS ORDERED: DIPHtheria,PERTUSSIS(ACELL),TETANUS VACCINE/PF 0.5 ML VIAL IM ONE (19:44)
--- NOTE | 2020-07-16 19:51 | Emergency Department Report ---
ED Fall HPI - General Stated Complaint: FALLL; FACIAL/HAND INJURY Time Seen by Provider: 07/16/20 19:44 Source: patient, RN notes reviewed Limitations: No Limitations - History of Present Illness Initial Comments: This is a 25-year-old male nontoxic, well nourished in appearance, no acute signs of distress presents to the ED with c/o of headache, neck pain, facial abrasions and left hand pain s/p trip and fall today. Patient denies any LOC. Stated had a mechanical trip and fall. Describes headache as aching diffiuse. Denies thunderclap headache. Denies any radiation of pain. Denies worst heada ches. Patient denies any other trauma or injuries. Denies decreased ROM, joint swelling, redness, or abnormal gait. Denies any fever, chills, nausea, vomiting, headache, stiff neck, chest pain or shortness of breath. Patient denies any numbness or tingling. Denies any drug allergies. Denies being UTD with tetanus. MD Complaint: fall -: This evening Fall From: standing When Fall Occurred: unsure Fall Witnessed: yes, by family Place Fall Occurred: home Loss of Consciousness: none Prolonged Down Time?: no Symptoms Prior to Fall: none Location: head, face, neck Location - Extremities: Left: Hand Severity: mild Severity scale (0 -10): 8 Quality: aching Context: tripped/slipped Associated Symptoms: headache, neck pain. denies: numbness, weakness, chest paint, shortness of breath, abdominal pain, hematuria, unable to walk, lightheaded, vertigo, confusion - Related Data Previous Rx's Medication Instructions Recorded Last Taken Type Ibuprofen [Motrin 800 MG tab] 800 mg PO TID PRN #60 tablet 02/28/13 Unknown Rx Ibuprofen [Motrin] 600 mg PO Q8H PRN #60 tablet 08/16/14 Unknown Rx traMADoL [Ultram 50 MG tab] 50 mg PO Q6HR PRN #14 tablet 11/07/14 Unknown Rx Ibuprofen [Motrin 800 MG tab] 800 mg PO Q8HR PRN #20 tablet 12/07/16 Unknown Rx Sulfamethoxazole/Trimethoprim 1 each PO BID #14 tablet 12/07/16 Unknown Rx [Bactrim DS TAB] traMADoL [Ultram] 50 mg PO Q6HR PRN #14 tablet 12/07/16 Unknown Rx Azithromycin [Zithromax Z-ZOË] 250 mg PO DAILY #6 tablet 10/22/17 Unknown Rx HYDROcodone/APAP 5-325 [[place] 1 each PO Q4HR PRN #12 tablet 10/22/17 Unknown Rx 5/325] predniSONE [Deltasone] 20 mg PO QDAY #5 tab 10/22/17 Unknown Rx Amoxicillin [Amoxicillin TAB] 875 mg PO BID #14 tablet 10/25/17 Unknown Rx ALBUTEROL Inhaler(NF) [VENTOLIN 1 puff IH Q4-6H PRN #1 inha 06/30/18 Unknown Rx Inhaler(NF)] Benzonatate [Tessalon Perle] 100 mg PO TID PRN #30 capsule 06/30/18 Unknown Rx Albuterol Mdi (or & Nicu Only) 2 puff IH QID PRN #1 inhalation 12/12/18 Unknown Rx [ProAir HFA Inhaler] Benzonatate [Tessalon Perles] 100 mg PO Q8HR PRN #24 capsule 12/12/18 Unknown Rx Ibuprofen [Motrin] 400 mg PO Q8H PRN #20 tablet 12/12/18 Unknown Rx methylPREDNISolone [Medrol 4MG 4 mg PO DAILY #21 tab.ds.pk 12/12/18 Unknown Rx DOSEPAK (21 tabs)] Ibuprofen [Motrin 800 MG tab] 800 mg PO Q8HR PRN #30 tablet 04/05/20 Unknown Rx Naproxen 500 mg PO Q12H PRN #20 tablet 07/16/20 Unknown Rx Allergies Allergy/AdvReac Type Severity Reaction Status Date / Time peanut Allergy Shortness Verified 07/16/20 19:48 of Breath ED Review of Systems ROS: Stated complaint: FALLL; FACIAL/HAND INJURY Other details as noted in HPI Comment: All other systems reviewed and negative Constitutional: denies: chills, fever Eyes: denies: eye pain, eye discharge, vision change ENT: denies: ear pain, throat pain Respiratory: denies: cough, shortness of breath, wheezing Cardiovascular: denies: chest pain, palpitations Endocrine: no symptoms reported Gastrointestinal: denies: abdominal pain, nausea, diarrhea Genitourinary: denies: urgency, dysuria Musculoskeletal: other (neck pain). denies: back pain, joint swelling, arthralgia Skin: denies: rash, lesions Neurological: headache. denies: weakness, paresthesias Psychiatric: denies: anxiety, depression Hematological/Lymphatic: denies: easy bleeding, easy bruising ED Past Medical Hx - Past Medical History Hx Kidney Stones: Yes Hx Asthma: Yes Additional medical history: hypertrophic cardiomyopathy - Social History Smoking Status: Current Every Day Smoker Substance Use Type: None - Medications Home Medications: Home Medications Medication Instructions Recorded Confirmed Last Taken Type Ibuprofen [Motrin 800 MG tab] 800 mg PO TID PRN #60 tablet 02/28/13 Unknown Rx Ibuprofen [Motrin] 600 mg PO Q8H PRN #60 tablet 08/16/14 Unknown Rx traMADoL [Ultram 50 MG tab] 50 mg PO Q6HR PRN #14 tablet 11/07/14 Unknown Rx Ibuprofen [Motrin 800 MG tab] 800 mg PO Q8HR PRN #20 tablet 12/07/16 Unknown Rx Sulfamethoxazole/Trimethoprim 1 each PO BID #14 tablet 12/07/16 Unknown Rx [Bactrim DS TAB] traMADoL [Ultram] 50 mg PO Q6HR PRN #14 tablet 12/07/16 Unknown Rx Azithromycin [Zithromax Z-ZOË] 250 mg PO DAILY #6 tablet 10/22/17 Unknown Rx HYDROcodone/APAP 5-325 [[place] 1 each PO Q4HR PRN #12 tablet 10/22/17 Unknown Rx 5/325] predniSONE [Deltasone] 20 mg PO QDAY #5 tab 10/22/17 Unknown Rx Amoxicillin [Amoxicillin TAB] 875 mg PO BID #14 tablet 10/25/17 Unknown Rx ALBUTEROL Inhaler(NF) [VENTOLIN 1 puff IH Q4-6H PRN #1 inha 06/30/18 Unknown Rx Inhaler(NF)] Benzonatate [Tessalon Perle] 100 mg PO TID PRN #30 capsule 06/30/18 Unknown Rx Albuterol Mdi (or & Nicu Only) 2 puff IH QID PRN #1 inhalation 12/12/18 Unknown Rx [ProAir HFA Inhaler] Benzonatate [Tessalon Perles] 100 mg PO Q8HR PRN #24 capsule 12/12/18 Unknown Rx Ibuprofen [Motrin] 400 mg PO Q8H PRN #20 tablet 12/12/18 Unknown Rx methylPREDNISolone [Medrol 4MG 4 mg PO DAILY #21 tab.ds.pk 12/12/18 Unknown Rx DOSEPAK (21 tabs)] Ibuprofen [Motrin 800 MG tab] 800 mg PO Q8HR PRN #30 tablet 04/05/20 Unknown Rx Naproxen 500 mg PO Q12H PRN #20 tablet 07/16/20 Unknown Rx ED Physical Exam - General General appearance: alert, in no apparent distress - Head Head exam: Present: atraumatic, normocephalic - Eye Eye exam: Present: normal appearance, PERRL, EOMI - Neck Neck exam: Present: normal inspection, full ROM. Absent: tenderness, meningismus, lymphadenopathy - Respiratory Respiratory exam: Present: normal lung sounds bilaterally. Absent: respiratory distress, wheezes, rales, rhonchi, stridor, chest wall tenderness, accessory muscle use, decreased breath sounds, prolonged expiratory - Cardiovascular Cardiovascular Exam: Present: regular rate, normal rhythm, normal heart sounds. Absent: bradycardia, tachycardia, irregular rhythm, systolic murmur, diastolic murmur, rubs, gallop - GI/Abdominal GI/Abdominal exam: Present: soft, normal bowel sounds. Absent: distended, tenderness, guarding, rebound, rigid, diminished bowel sounds - Extremities Exam Extremities exam: Present: normal inspection, full ROM, tenderness, normal capillary refill. Absent: joint swelling - Expanded Upper Extremity Exam Left General: Present: normal inspection Shoulder Exam: Present: normal inspection, full ROM. Absent: tenderness, swelling Upper Arm exam: Present: normal inspection, full ROM. Absent: tenderness, swelling Elbow exam: Present: normal inspection, full ROM. Absent: tenderness, swelling Forearm Wrist exam: Present: normal inspection, full ROM. Absent: tenderness, s welling, abrasion, laceration, ecchymosis, deformity, crepidus, dislocation, erythema, tenderness over anatomical snuff box, pain with axial thumb loading Hand Wrist exam: Present: full ROM, tenderness, swelling. Absent: abrasion, laceration, ecchymosis, deformity, crepidus, dislocation, erythema, amputation, nail avulsion, subungual hematoma Hand L/R Back: 1 - pain here Vascular: Present: normal capillary refill. Absent: vascular compromise (neurovascular intact) - Back Exam Back exam: Present: normal inspection, full ROM, paraspinal tenderness (cervical paraspinal). Absent: tenderness, CVA tenderness (R), CVA tenderness (L), muscle spasm, vertebral tenderness, rash noted - Expanded Back Exam Expanded Back exam: Absent: saddle anesthesia Back exam: Negative Straight Leg Raising: Left, Right - Neurological Exam Neurological exam: Present: alert, oriented X3, normal gait - Expanded Neurological Exam Expanded Patient oriented to: Present: person, place, time Cranial nerves: EOM's Intact: Normal, Facial Sensation: Normal Cerebellar function: Finger to Nose: Normal Upper motor neuron: Pronator Drift: Normal, Sensory Extinction: Normal Motor strength exam: RUE: 5, LUE: 5, RLE: 5, LLE: 5 Best Eye Response ([place]): (4) open spontaneously Best Motor Response ([place]): (6) obeys commands Best Verbal Response ([place]): (5) oriented [place] Total: 15 - Psychiatric Psychiatric exam: Present: normal affect, normal mood - Skin Skin exam: Present: warm, dry, intact, normal color. Absent: rash ED Course Vital Signs 07/16/20 07/16/20 19:48 19:50 Temperature 98.6 F Pulse Rate 64 Respiratory 17 16 Rate Blood Pressure 113/85 O2 Sat by Pulse 98 Oximetry Vital Signs 07/16/20 19:48 Temperature 98.6 F Pulse Rate 64 Respiratory 17 Rate Blood Pressure 113/85 O2 Sat by Pulse 98 Oximetry - Reevaluation(s) Reevaluation #1: 07/16/20 19:51 Patient is speaking in full sentences with no signs of distress noted. ED Medical Decision Making - Radiology Data Referring Physician: STACY RICHARD Patient Name: DANIELLE CORREIA Date of : 1995 Sex: Male Report Date: 2020-07-16 Report Status: Finalized [facility] [address] [place] [address] Cat Scan Report Signed Patient: DANIELLE CORREIA MR# : [id number] : 1995 Acct:[id number] Age/Sex: 25 / M ADM Date: 07/16/20 Loc: ED Attending Dr: Ordering Physician: STACY RICHARD NP Date of Service: 07/16/20 Procedure(s): CT head/brain wo con Accession Number(s): [id number] cc: STACY RICHARD NP . CT head/brain wo con INDICATION / CLINICAL INFORMATION: 25 years Male; facial abrasions and pain s/p fall. TECHNIQUE: Routine CT head without contrast. All CT scans at this location are performed using CT dose reduction for ALARA by means of automated exposure control. COMPARISON: None. FINDINGS: BRAIN / INTRACRANIAL CONTENTS: No acute hemorrhage, mass effect, midline shift, hydrocephalus, or acute, large territorial infarct. No signs of significant atrophy or chronic infarct. No significant white matter abnormality seen. CRANIOCERVICAL JUNCTION: No significant abnormality. ORBITS: No significant abnormality of visualized orbits. SINUSES / MASTOIDS: Visualized paranasal sinuses and mastoid air cells are essentially clear. ADDITIONAL FINDINGS: None. IMPRESSION: 1. No focal mass, hemorrhage, hydrocephalus, or acute, large territorial infarct. Signer Name: Yassine Perez MD, III Signed: 07/16/2020 8:25 PM Workstation Name: [id number] Transcribed By: HR Dictated By: Yassine Perez MD Electronically Authenticated By: Yassine Perez MD Signed Date/Time: 07/16/202024 DD/ 22 TD/TT: Referring Physician: STACY RICHARD Patient Name: DANIELLE CORREIA Date of : 1995 Sex: Male Report Date: 2020-07-16 Report Status: Finalized [facility] [address] [place] [address] XRay Report Signed Patient: DANIELLE CORREIA MR# : [id number] : 1995 Acct:[id number] Age/Sex: 25 / M ADM Date: 07/16/20 Loc: ED Attending Dr: Ordering Physician: STACY RICHARD NP Date of Service: 07/16/20 Procedure(s): XR hand 3+V LT Accession Number(s): [id number] cc: STACY RICHARD NP Fluoro Time In Minutes: . XR hand 3+V LT INDICATION / CLINICAL INFORMATION: left hand pain s/p fall. COMPARISON: None available. FINDINGS: There is an acute mildly displaced fracture of the left fourth metacarpal with transverse component extending through the proximal metacarpal shaft and prominent spiral component extending to involve the midshaft. There is also a nondisplaced fracture of the left fifth metacarpal. No additional fracture is identified. Carpal alignment is preserved. There is soft tissue swelling at the ulnar aspect of the hand. IMPRESSION: Acute fractures of the left fourth and fifth metacarpal shafts, as above. Signer Name: Haven Bailey MD Signed: 07/16/2020 8:57 PM Workstation Name: [id number] Transcribed By: VEDA Dictated By: HAVEN BAILEY MD Electronically Authenticated By: HAVEN BAILEY MD Signed Date/Time: 07/16/202056 DD/ 54 TD/TT: Referring Physician: STACY RICHARD Patient Name: DANIELLE CORREIA Date of : 1995 Sex: Male Report Date: 2020-07-16 Report Status: [place] [address] Cat Scan Report Signed Patient: DANIELLE CORREIA MR# : [id number] : 1995 Acct:[id number] Age/Sex: 25 / M ADM Date: 07/16/20 Loc: ED Attending Dr: Ordering Physician: STACY RICHARD NP Date of Service: 07/16/20 Procedure(s): CT cervical spine wo con Accession Number(s): [id number] cc: STACY RICHARD NP CT cervical spine wo con INDICATION / CLINICAL INFORMATION: 25 years Male; facial abrasions and pain s/p fall. TECHNIQUE: Axial CT images of the cervical spine were obtained. Sagittal and coronal reformatted images were produced. All CT scans at this location are performed using CT dose reduction for ALARA by means of automated exposure control. COMPARISON: None available. FINDINGS: POST-SURGICAL CHANGES: None. ALIGNMENT: No significant abnormality. VERTEBRAE: No signs of fracture. Vertebral bodies are grossly normal in height throughout. No significant facet joint disease or osseous foraminal narrowing appreciated. INTRAVERTEBRAL DISCS: Minimal disc disease seen at C5-6, C6-7, C7- T1. No significant canal stenosis. PARASPINAL SOFT TISSUES: No significant abnormality. ADDITIONAL FINDINGS: None. IMPRESSION: 1. No signs of acute bony trauma to the cervical spine. Signer Name: Yassine Perez MD, III Signed: 07/16/2020 8:26 PM Workstation Name: [email or web address] Transcribed By: HR Dictated By: Yassine Perez MD Electronically Authenticated By: Yassine Perez MD Signed Date/Time: 07/16/202025 DD/ 24 TD/TT: Referring Physician: STACY RICHARD Patient Name: DANIELLE CORREIA Date of : 1995 Sex: Male Report Date: 2020-07-16 Report Status: [place] [address] Cat Scan Report Signed Patient: DANIELLE CORREIA MR# : [id number] : 1995 Acct:[id number] Age/Sex: 25 / M ADM Date: 07/16/20 Loc: ED Attending Dr: Ordering Physician: STACY RICHARD NP Date of Service: 07/16/20 Procedure(s): CT facial bones wo con Accession Number(s): [id number] cc: STACY RICHARD NP CT facial bones wo con INDICATION / CLINICAL INFORMATION: 25 years Male; facial abrasions and pain s/p fall. TECHNIQUE: Thin cut axial images obtained. Sagittal and coronal reconstructions performed. All CT scans at this location are performed using CT dose reduction for ALARA by means of automated exposure control. COMPARISON: None available. FINDINGS: No significant subcutaneous soft tissue facial swelling. No evidence of bony facial trauma. M oderate opacification seen in the left maxillary antrum. Mucous retention cyst/polypoid disease. Mild mucosal thickening in the ethmoids. Remainder of the visualized paranasal sinuses and mastoid air cells are essentially clear. IMPRESSION: 1. No signs of acute bony facial trauma. 2. Left mastoid disease noted. Signer Name: Yassine Perez MD, III Signed: 07/16/2020 8:29 PM Workstation Name: [email or web address] Transcribed By: HR Dictated By: Yassine Perez MD Electronically Authenticated By: Yassine Perez MD Signed Date/Time: 07/16/202028 DD/ 25 TD/TT: - Medical Decision Making 25-year-old male that presents with fall with left fourth and fifth metatarsal fractures. Patient stable and was examined by me. Patient did receive [place] for pain and stated family member will drive the patient home after discharge due to possible drowsiness. Patient is notified of the CT and x-ray results with no questions noted by the patient. Patient was instructed to RICE therapy. Patient received a ulnar gutter splint with a sling. Post splint assessment: neurovasular intact; normal cap refill <2 second; normal sensation; denies decreaed sensation; normal ROM of digits. Patient was given referrals to follow-up with a orthopedic doctor in 3-5 days or if symptoms worsen and continue return to emergency room as soon as possible. At time of discharge, the patient does not seem toxic or ill in appearance. No acute signs of distress noted. Patient agrees to discharge treatment plan of care. No further questions noted by the patient. Critical care attestation.: If time is entered above; I have spent that time in minutes in the direct care of this critically ill patient, excluding procedure time. ED Disposition Clinical Impression: Left hand fracture Qualifiers: Encounter type: initial encounter Fracture type: closed Qualified Code(s): S62.92XA - Unspecified fracture of left wrist and hand, initial encounter for closed fracture Fall Qualifiers: Encounter type: initial encounter Qualified Code(s): W19.XXXA - Unspecified fall, initial encounter Facial abrasion Qualifiers: Encounter type: initial encounter Qualified Code(s): S00.81XA - Abrasion of other part of head, initial encounter Head contusion Qualifiers: Encounter type: initial encounter Contusion of head detail: other part of head Qualified Code(s): S00.83XA - Contusion of other part of head, initial encounter Sprain of cervical neck Qualifiers: Encounter type: initial encounter Qualified Code(s): S13.9XXA - Sprain of joints and ligaments of unspecified parts of neck, initial encounter Disposition: - TO HOME OR SELFCARE Is pt being admited?: No Does the pt Need Aspirin: No Condition: Stable Instructions: Cast or Splint Care, Adult, [id number], RICE Therapy for Routine Care of Injuries, [id number] Additional Instructions: Follow-up with a orthopedic doctor in 3-5 days or if symptoms worsen and continue return to emergency room as soon as possible. No physical activity that extremity until cleared by orthopedic doctor Prescriptions: Naproxen 500 mg PO Q12H PRN #20 tablet PRN Reason: Pain , Severe (7-10) Referrals: PRIMARY CAREMD [Primary Care Provider] - 3-5 Days ASHLEY ARVIZU MD [Staff Physician] - 3-5 Days Forms: Work/School Release Form(ED) Time of Disposition: 21:36
--- NOTE | 2020-07-16 20:29 | Cat Scan Report ---
. CT head/brain wo con INDICATION / CLINICAL INFORMATION: 25 years Male; facial abrasions and pain s/p fall. TECHNIQUE: Routine CT head without contrast. All CT scans at this location are performed using CT dos e reduction for ALARA by means of automated exposure control. COMPARISON: None. FINDINGS: BRAIN / INTRACRANIAL CONTENTS: No acute hemorrhage, mass effect, midline shift, hydrocephalus, or acu te, large territorial infarct. No signs of significant atrophy or chronic infarct. No significant whi te matter abnormality seen. CRANIOCERVICAL JUNCTION: No significant abnormality. ORBITS: No significant abnormality of visualized orbits. SINUSES / MASTOIDS: Visualized paranasal sinuses and mastoid air cells are essentially clear. ADDITIONAL FINDINGS: None. IMPRESSION: 1. No focal mass, hemorrhage, hydrocephalus, or acute, large territorial infarct. Signer Name: Yassine Perez MD, III Signed: 07/16/2020 8:25 PM Workstation Name: [id number]
--- NOTE | 2020-07-16 20:31 | Cat Scan Report ---
CT cervical spine wo con INDICATION / CLINICAL INFORMATION: 25 years Male; facial abrasions and pain s/p fall. TECHNIQUE: Axial CT images of the cervical spine were obtained. Sagittal and coronal reformatted images were pr oduced. All CT scans at this location are performed using CT dose reduction for ALARA by means of aut omated exposure control. COMPARISON: None available. FINDINGS: POST-SURGICAL CHANGES: None. ALIGNMENT: No significant abnormality. VERTEBRAE: No signs of fracture. Vertebral bodies are grossly normal in height throughout. No signif icant facet joint disease or osseous foraminal narrowing appreciated. INTRAVERTEBRAL DISCS: Minimal disc disease seen at C5-6, C6-7, C7-T1. No significant canal stenosis. PARASPINAL SOFT TISSUES: No significant abnormality. ADDITIONAL FINDINGS: None. IMPRESSION: 1. No signs of acute bony trauma to the cervical spine. Signer Name: Yassine Perez MD, III Signed: 07/16/2020 8:26 PM Workstation Name: [id number]
--- NOTE | 2020-07-16 20:34 | Cat Scan Report ---
CT facial bones wo con INDICATION / CLINICAL INFORMATION: 25 years Male; facial abrasions and pain s/p fall. TECHNIQUE: Thin cut axial images obtained. Sagittal and coronal reconstructions performed. All CT scans at this location are performed using CT dose reduction for ALARA by means of automated exposure control. COMPARISON: None available. FINDINGS: No significant subcutaneous soft tissue facial swelling. No evidence of bony facial trauma. Moderate opacification seen in the left maxillary antrum. Mucous retention cyst/polypoid disease. Mil d mucosal thickening in the ethmoids. Remainder of the visualized paranasal sinuses and mastoid air c ells are essentially clear. IMPRESSION: 1. No signs of acute bony facial trauma. 2. Left mastoid disease noted. Signer Name: Yassine Perez MD, III Signed: 07/16/2020 8:29 PM Workstation Name: [id number]
--- NOTE | 2020-07-16 21:02 | XRay Report ---
. XR hand 3+V LT INDICATION / CLINICAL INFORMATION: left hand pain s/p fall. COMPARISON: None available. FINDINGS: There is an acute mildly displaced fracture of the left fourth metacarpal with transverse component e xtending through the proximal metacarpal shaft and prominent spiral component extending to involve th e midshaft. There is also a nondisplaced fracture of the left fifth metacarpal. No additional fractur e is identified. Carpal alignment is preserved. There is soft tissue swelling at the ulnar aspect of the hand. IMPRESSION: Acute fractures of the left fourth and fifth metacarpal shafts, as above. Signer Name: Oren Bailey MD Signed: 07/16/2020 8:57 PM Workstation Name: [id number]
[2020-07-16 22:10] VITALS: BP 110/62
== END 2020-07-16 22:13 | disposition home or self-care (01) ==
LOC: ED 19:32
DX: S62.325A Displaced fracture of shaft of fourth metacarpal bone, left hand, initial encounter for closed fracture (principal); S62.327A Displaced fracture of shaft of fifth metacarpal bone, left hand, initial encounter for closed fracture; S13.9XXA Sprain of joints and ligaments of unspecified parts of neck, initial encounter; S00.93XA Contusion of unspecified part of head, initial encounter; S00.81XA Abrasion of other part of head, initial encounter; J45.909 Unspecified asthma, uncomplicated; F17.200 Nicotine dependence, unspecified, uncomplicated; Z79.1 Long term (current) use of non-steroidal anti-inflammatories (NSAID); Z87.442 Personal history of urinary calculi; Z79.2 Long term (current) use of antibiotics; Z79.899 Other long term (current) drug therapy; Z91.010 Allergy to peanuts; W01.0XXA Fall on same level from slipping, tripping and stumbling without subsequent striking against object, initial encounter; Y93.89 Activity, other specified; Y92.89 Other specified places as the place of occurrence of the external cause; Y99.8 Other external cause status
CPT/HCPCS: 70450; 70486; 72125; 90471; 90715

== ENCOUNTER 2020-07-18 13:12 | Emergency (ER) | payer MEDICAID ==
--- NOTE | 2020-07-18 13:46 | Emergency Department Report ---
ED Extremity Problem HPI - General Stated complaint: LFT ARM POSS BROKEN/PAIN Time Seen by Provider: 07/18/20 13:41 - History of Present Illness Initial comments: This pleasant 25-year-old male who presents to the emergency department for reevaluation of his left hand. Patient reports he fell a few days ago and was seen in the ER and told he had couple fractures in his hand was placed in a splint and called orthopedics but states the soonest appointment he could get was this Thursday. He has an appointment in 2 days but wanted to come to the emergency department due to his pain not being controlled. He denies any additional injuries. He reports he has normal sensation in his fingertips and is able to move them. He states the pain has not gotten any worse which is has not been relieved with the naproxen that he was given. He denies any associated fever, chills, night sweats, headache, dizziness, blurry vision, nausea, vomit, diarrhea, chest pain, shortness of breath or any other associated symptoms. - Related Data Previous Rx's Medication Instructions Recorded Last Taken Type Ibuprofen [Motrin 800 MG tab] 800 mg PO TID PRN #60 tablet 02/28/13 Unknown Rx Ibuprofen [Motrin] 600 mg PO Q8H PRN #60 tablet 08/16/14 Unknown Rx Ibuprofen [Motrin 800 MG tab] 800 mg PO Q8HR PRN #20 tablet 12/07/16 Unknown Rx Sulfamethoxazole/Trimethoprim 1 each PO BID #14 tablet 12/07/16 Unknown Rx [Bactrim DS TAB] traMADoL [Ultram] 50 mg PO Q6HR PRN #14 tablet 12/07/16 Unknown Rx Azithromycin [Zithromax Z-ZOË] 250 mg PO DAILY #6 tablet 10/22/17 Unknown Rx HYDROcodone/APAP 5-325 [[place] 1 each PO Q4HR PRN #12 tablet 10/22/17 Unknown Rx 5/325] predniSONE [Deltasone] 20 mg PO QDAY #5 tab 10/22/17 Unknown Rx Amoxicillin [Amoxicillin TAB] 875 mg PO BID #14 tablet 10/25/17 Unknown Rx ALBUTEROL Inhaler(NF) [VENTOLIN 1 puff IH Q4-6H PRN #1 inha 06/30/18 Unknown Rx Inhaler(NF)] Benzonatate [Tessalon Perle] 100 mg PO TID PRN #30 capsule 06/30/18 Unknown Rx Albuterol Mdi (or & Nicu Only) 2 puff IH QID PRN #1 inhalation 12/12/18 Unknown Rx [ProAir HFA Inhaler] Benzonatate [Tessalon Perles] 100 mg PO Q8HR PRN #24 capsule 12/12/18 Unknown Rx Ibuprofen [Motrin] 400 mg PO Q8H PRN #20 tablet 12/12/18 Unknown Rx methylPREDNISolone [Medrol 4MG 4 mg PO DAILY #21 tab.ds.pk 12/12/18 Unknown Rx DOSEPAK (21 tabs)] Ibuprofen [Motrin 800 MG tab] 800 mg PO Q8HR PRN #30 tablet 04/05/20 Unknown Rx Naproxen 500 mg PO Q12H PRN #20 tablet 07/16/20 Unknown Rx traMADoL [Ultram 50 MG tab] 50 mg PO Q6HR PRN #14 tablet 07/18/20 Unknown Rx Allergies Allergy/AdvReac Type Severity Reaction Status Date / Time peanut Allergy Shortness Verified 07/16/20 19:48 of Breath ED Review of Systems ROS: Stated complaint: LFT ARM POSS BROKEN/PAIN Other details as noted in HPI Comment: All other systems reviewed and negative Constitutional: denies: chills, fever Eyes: denies: eye pain, eye discharge, vision change ENT: denies: ear pain, throat pain Respiratory: denies: cough, shortness of breath, wheezing Cardiovascular: denies: chest pain, palpitations Endocrine: no symptoms reported Gastrointestinal: denies: abdominal pain, nausea, diarrhea Genitourinary: denies: urgency, dysuria Musculoskeletal: as per HPI, arthralgia. denies: back pain, joint swelling Skin: denies: rash, lesions Neurological: denies: headache, weakness, paresthesias Psychiatric: denies: anxiety, depression Hematological/Lymphatic: denies: easy bleeding, easy bruising ED Past Medical Hx - Past Medical History Hx Kidney Stones: Yes Hx Asthma: Yes Additional medical history: hypertrophic cardiomyopathy - Social History Smoking Status: Current Every Day Smoker Substance Use Type: None - Medications Home Medications: Home Medications Medication Instructions Recorded Confirmed Last Taken Type Ibuprofen [Motrin 800 MG tab] 800 mg PO TID PRN #60 tablet 02/28/13 Unknown Rx Ibuprofen [Motrin] 600 mg PO Q8H PRN #60 tablet 08/16/14 Unknown Rx Ibuprofen [Motrin 800 MG tab] 800 mg PO Q8HR PRN #20 tablet 12/07/16 Unknown Rx Sulfamethoxazole/Trimethoprim 1 each PO BID #14 tablet 12/07/16 Unknown Rx [Bactrim DS TAB] traMADoL [Ultram] 50 mg PO Q6HR PRN #14 tablet 12/07/16 Unknown Rx Azithromycin [Zithromax Z-ZOË] 250 mg PO DAILY #6 tablet 10/22/17 Unknown Rx HYDROcodone/APAP 5-325 [[place] 1 each PO Q4HR PRN #12 tablet 10/22/17 Unknown Rx 5/325] predniSONE [Deltasone] 20 mg PO QDAY #5 tab 10/22/17 Unknown Rx Amoxicillin [Amoxicillin TAB] 875 mg PO BID #14 tablet 10/25/17 Unknown Rx ALBUTEROL Inhaler(NF) [VENTOLIN 1 puff IH Q4-6H PRN #1 inha 06/30/18 Unknown Rx Inhaler(NF)] Benzonatate [Tessalon Perle] 100 mg PO TID PRN #30 capsule 06/30/18 Unknown Rx Albuterol Mdi (or & Nicu Only) 2 puff IH QID PRN #1 inhalation 12/12/18 Unknown Rx [ProAir HFA Inhaler] Benzonatate [Tessalon Perles] 100 mg PO Q8HR PRN #24 capsule 12/12/18 Unknown Rx Ibuprofen [Motrin] 400 mg PO Q8H PRN #20 tablet 12/12/18 Unknown Rx methylPREDNISolone [Medrol 4MG 4 mg PO DAILY #21 tab.ds.pk 12/12/18 Unknown Rx DOSEPAK (21 tabs)] Ibuprofen [Motrin 800 MG tab] 800 mg PO Q8HR PRN #30 tablet 04/05/20 Unknown Rx Naproxen 500 mg PO Q12H PRN #20 tablet 07/16/20 Unknown Rx traMADoL [Ultram 50 MG tab] 50 mg PO Q6HR PRN #14 tablet 07/18/20 Unknown Rx ED Physical Exam - General General appearance: alert, in no apparent distress - Head Head exam: Present: atraumatic, normocephalic - Eye Eye exam: Present: normal appearance, PERRL, EOMI Pupils: Present: normal accommodation - ENT ENT exam: Present: normal exam, normal orophraynx, mucous membranes moist - Neck Neck exam: Present: normal inspection, full ROM. Absent: tenderness, meningismus - Respiratory Respiratory exam: Present: normal lung sounds bilaterally. Absent: respiratory distress, wheezes, rales, rhonchi, stridor - Cardiovascular Cardiovascular Exam: Present: regular rate, normal rhythm, normal heart sounds. Absent: systolic murmur, diastolic murmur, rubs, gallop - GI/Abdominal GI/Abdominal exam: Present: soft, normal bowel sounds. Absent: distended, tenderness, rebound - Rectal Rectal exam: Present: deferred - Extremities Exam Extremities exam: Present: normal inspection, full ROM, tenderness (There is tenderness over the metacarpals of the left chest. There is a ulnar gutter splint intact that appears appropriately positioned. There is normal distal sensation and movement of the fingertips.) - Back Exam Back exam: Present: normal inspection - Neurological Exam Neurological exam: Present: alert, oriented X3 - Psychiatric Psychiatric exam: Present: normal affect, normal mood - Skin Skin exam: Present: warm, dry, intact, normal color. Absent: rash ED Course Vital Signs 07/18/20 14:05 Temperature 98.5 F Pulse Rate 58 L Respiratory 18 Rate Blood Pressure 110/70 O2 Sat by Pulse 97 Oximetry Critical care attestation.: If time is entered above; I have spent that time in minutes in the direct care of this critically ill patient, excluding procedure time. ED Disposition Clinical Impression: Boxers fracture Qualifiers: Encounter type: subsequent encounter Fracture type: closed Fracture healing: with routine healing Qualified Code(s): S62.339D - Displaced fracture of neck of unspecified metacarpal bone, subsequent encounter for fracture with routine healing Disposition: DC-01 TO HOME OR SELFCARE Is pt being admited?: No Condition: Stable Instructions: Metacarpal Fracture, [id number] Prescriptions: traMADoL [Ultram 50 MG tab] 50 mg PO Q6HR PRN #14 tablet PRN Reason: Pain Referrals: ASHLEY ARVIZU MD [Staff Physician] - 3-5 Days Forms: Work/School Release Form(ED) Time of Disposition: 14:27
[2020-07-18 14:10] VITALS: BP 110/70
== END 2020-07-18 14:35 | disposition home or self-care (01) ==
LOC: ED 13:12
DX: S62.309A Unspecified fracture of unspecified metacarpal bone, initial encounter for closed fracture (principal); J45.909 Unspecified asthma, uncomplicated; Z87.442 Personal history of urinary calculi; F17.200 Nicotine dependence, unspecified, uncomplicated; Z79.1 Long term (current) use of non-steroidal anti-inflammatories (NSAID); Z79.899 Other long term (current) drug therapy; Z91.010 Allergy to peanuts; W19.XXXA Unspecified fall, initial encounter; Y93.89 Activity, other specified; Y92.89 Other specified places as the place of occurrence of the external cause; Y99.8 Other external cause status
CPT/HCPCS: 99282